=== PATIENT | male | born 1960 | race Two or more races ===

== ENCOUNTER 2024-04-07 02:36 | Inpatient (IN) | payer MEDICAID ==
[~2024-04-07] VITALS: Ht 170.2 cm; Wt 81.5 kg
[2024-04-07 03:05] VITALS: PULSE 62; RESP 14; O2SAT 97
--- NOTE | 2024-04-07 03:06 | ED.PDOC ---
History of Present Illness HPI Comments 63-year-old male came to ER due to abdominal pain. Patient denies any medical problems. States he woke up from his sleep due to sudden onset upper abdominal pain, radiating to his back. Denies any nausea or vomiting. Blood pressure upon arrival was 175/90 mm Hg, and has a heart rate of 60s. Chief Complaint: Abdominal pain Time Seen by MD: 02:40 Reviewed Notes: Nurses Notes Allergies: Coded Allergies: NO KNOWN ALLERGIES (Unverified , 04/07/24) Information Source: Patient Mode of Arrival: Ambulatory Severity: Moderate Timing: Minutes Duration: Since onset Prehospital treatment: None Medication Refill: For: Other Past Medical History PAST MEDICAL HISTORY: Denies Surgical History: Denies all surgeries Family History Family History: Reviewed,noncontributory to illness Social History Smoker: Non-Smoker Alcohol: Denies ETOH Use Drugs: Denies Drug Use Lives In: Home Constitutional: denies: chills, diaphoresis, fatigue, fever, malaise, sweats, weakness, others EENTM: denies: blurred vision, double vision, ear bleeding, ear discharge, ear drainage, ear pain, ear ringing, eye pain, eye redness, hearing loss, mouth pain, mouth swelling, nasal discharge, nose bleeding, nose congestion, nose pain, photophobia, tearing, throat pain, throat swelling, voice changes, others Respiratory: denies: cough, hemoptysis, orthopnea, SOB at rest, shortness of breath, SOB with excertion, stridor, wheezing, others Cardiovascular: denies: chest pain, dizzy spells, diaphoresis, Dyspnea on exertion, edema, irregular heart beat, left arm pain, lightheadedness, palpitations, PND, syncope, others Gastrointestinal: reports: abdominal pain; denies: abdomen distended, blood streaked bowels, constipated, diarrhea, dysphagia, difficulty swallowing, hematemesis, melena, nausea, poor appetite, poor fluid intake, rectal bleeding, rectal pain, vomiting, others Genitourinary: denies: burning, dysuria, flank pain, frequency, hematuria, incontinence, penile discharge, penile sore, pain, testicle pain, testicle swelling, urgency, others Neurological: denies: dizziness, fainting, headache, left sided numbness, left sided weakness, numbness, paresthesia, pre-existing deficit, right sided numbness, right sided weakness, seizure, speech problems, tingling, tremors, weakness, others Musculoskeletal: reports: back pain; denies: gout, joint pain, joint swelling, muscle pain, muscle stiffness, neck pain, others Integumetry: denies: bruises, change in color, change in hair/nails, dryness, laceration, lesions, lumps, rash, wounds, others Allergic/Immunocompromised: denies: Difficulty Healing, Frequent Infections, Hives, Itching, others Hematologic/Lymphatic: denies: anemia, blood clots, easy bleeding, easy bruising, swollen glands, others Endocrine: denies: excessive hunger, excessive sweating, excessive thirst, excessive urination, flushing, intolerance to cold, intolerance to heat, unexpla ined weight gain, unexplained weight loss, others Psychiatric: denies: anxiety, bipolar disorder, depression, hopeless, panic disorder, schizophrenia, sleepless, suicidal, others Physical Exam General Appearance: No Apparent Distress, Normal HEENT: Normal ENT Inspection, Pharynx Normal, TMs Normal Neck: Full Range of Motion, Non-Tender, Normal, Normal Inspection Respiratory: Chest Non-Tender, Lungs Clear, No Accessory Muscle Use, No Respiratory Distress, Normal Breath Sounds Cardiovascular: No Edema, No JVD, No Murmur, No Gallop, Normal Peripheral Pulses, Regular Rate/Rhythm Breast Exam: Deferred Gastrointestinal: No Organomegaly, Non Tender, No Pulsatile Mass, Normal Bowel Sounds, Soft Genitalia: Deferred Pelvic: Deferred Rectal: Deferred Extremities: No calf tenderness, Normal capillary refill, Normal inspection, Normal range of motion, Non-tender, No pedal edema Musculoskeletal : Apperance: Normal Neurologic: Alert, mechanical developer prover II-XII nml as Tested, No Motor Deficits, Normal Affect, Normal Mood, No Sensory Deficits Cerebellar Function: Normal Reflexes: Normal Skin: Dry, Normal Color, Warm Lymphatic: No Adenopathy Was a procedure done? Was a procedure done?: No Differential Dx Considerations may include: Abdominal pain, back pain UTI, Kidney stones, Aortic Aneurysm X-Ray, Labs, Meds, VS Vital Signs Date Time Temp Pulse Resp B/P (MAP) Pulse Ox O2 Delivery O2 Flow Rate FiO2 04/07/24 04:00 87 18 146/89 (108) 97 11/24/24 04:00 87 18 146/89 04/07/24 03:26 62 14 132/82 04/07/24 03:05 62 14 97 Room Air* 0 21 04/07/24 03:05 98.9 62 14 132/82 (99) 97 98.9 04/07/24 03:04 97.6 66 18 168/93 (118) 98 Lab Test 04/07/24 03:15 Range/Units White Blood Count 13.5 H 4.4-10.8 10^3/uL Red Blood Count 5.09 4.5-5.90 10^6/uL Hemoglobin 15.4 13.5-17.5 g/dL Hematocrit 45.8 41.0-53.0 % Mean Corpuscular Volume 90.0 80.0-100.0 fL Mean Corpuscular Hemoglobin 30.4 28.0-32.0 pg Mean Corpuscular Hemoglobin Concent 33.7 32.0-36.0 g/dL Red Cell Distribution Width 14.5 H 11.8-14.3 % Platelet Count 294 140-450 10^3/uL Mean Platelet Volume 9.2 6.9-10.8 fL Neutrophils (%) (Auto) 82.3 H 37.0-80.0 % Lymphocytes (%) (Auto) 12.9 10.0-50.0 % Monocytes (%) (Auto) 4.0 0.0-12.0 % Eosinophils (%) (Auto) 0.6 0.0-7.0 % Basophils (%) (Auto) 0.2 0.0-2.0 % Neutrophils # (Auto) 11.1 H 1.6-8.6 10 ^3/uL Lymphocytes # (Auto) 1.7 0.4-5.4 10 ^3/uL Monocytes # (Auto) 0.5 0-1.3 10 ^3/uL Eosinophils # (Auto) 0.1 0-0.8 10 ^3/uL Basophils # (Auto) 0 0-0.2 10 ^3/uL Nucleated Red Blood Cells 0.1 % Sodium Level 139 136-145 mmol/L Potassium Level 3.4 L 3.5-5.1 mmol/L Chloride Level 106 98-107 mmol/L Carbon Dioxide Level 26 20-31 mmol/L Anion Gap 7 5-15 Blood Urea Nitrogen 12 9-23 mg/dL Creatinine 0.99 0.700-1.30 mg/dL Glomerular Filtration Rate Calc 86 >90 mL/min BUN/Creatinine Ratio 12.1 10.0-20.0 Serum Glucose 131 H 74-106 mg/dL Calcium Level 9.5 8.7-10.4 mg/dL Total Bilirubin 0.4 0.2-1.0 mg/dL Aspartate Amino Transferase (AST) 22 13-40 U/L Alanine Aminotransferase (ALT) 27 7-40 U/L Alkaline Phosphatase 162 H 46-116 U/L Total Protein 8.3 H 5.7-8.2 g/dL Albumin 4.8 3.2-4.8 g/dL Lipase 57 H 12-53 U/L Current Medications Medications (Trade) Dose Ordered Sig/Marie Route Start Time Stop Time Status Last Admin Ondansetron HCl (Zofran) 4 mg ONCE ONCE IV 04/07/24 03:00 04/07/24 03:01 DC 04/07/24 03:26 Sodium Chloride 1,000 ml @ 1,000 mls/hr Q1H ONCE IVB 04/07/24 03:00 04/07/24 03:59 DC 04/07/24 03:19 Morphine Sulfate 4 mg ONCE ONCE IV 04/07/24 03:00 04/07/24 03:01 DC 04/07/24 03:26 Time of 1ST Reevaluation: 03:03 Reevaluation 1ST: Unchanged Time of 2ND Reevaluation: 04:00 Reevaluation 2ND: Improved Patient Education/Counseling: Diagnosis, Treatment Family Education/Counseling: No Family Present Sepsis Sepsis Reasesment Focused Exam Sepsis focused exam: focus exam completed Departure 1 Departure Time of Disposition: 04:55 Impression: Primary Impression: Abdominal pain Disposition: 01 HOME / SELF CARE / HOMELESS Condition: Stable Discharged With: Self Critical Care Note Critical Care Time?: Yes (35 min-critical care time only) Stability Stability form required: No Heart Score Heart Score: Heart Score Response (Comments) Value History N/A 0 EKG N/A 0 Age N/A 0 Risk Factors N/A 0 Troponin N/A 0 Total 0 I personally scribed for KATHERINE VILLELA MD ([email or web address]) on 04/07/24 at 03:06. Electronically submitted by Adelfo Mccauley ([email or web address]). KATHERINE VILLELA MD Apr 07, 2024 03:06
[2024-04-07] MEDS: SODIUM CHLORIDE 0.9% 1,000 ML IVB ONE (03:19)
[2024-04-07 03:21] LABS: Basophils # (auto) 0 10 ^3/uL (0-0.2); Basophils % (auto) 0.2 % (0.0-2.0); Eosinophils # (auto) 0.1 10 ^3/uL (0-0.8); Eosinophils % (auto) 0.6 % (0.0-7.0); Hematocrit 45.8 % (41.0-53.0); Hemoglobin 15.4 g/dL (13.5-17.5); Lymphocytes # (auto) 1.7 10 ^3/uL (0.4-5.4); Lymphocytes % (auto) 12.9 % (10.0-50.0); Mean Corpuscular Hemoglobin 30.4 pg (28.0-32.0); Mean Corpuscular Hgb Conc. 33.7 g/dL (32.0-36.0); Monocytes # (auto) 0.5 10 ^3/uL (0-1.3); Neutrophils # (auto) 11.1 10 ^3/uL (1.6-8.6); Neutrophils % (auto) 82.3 % (37.0-80.0); Nucleated Red Blood Cells % 0.1 %; Platelet Count (auto) 294 10^3/uL (140-450); Red Blood Cells 5.09 10^6/uL (4.5-5.90); Red Cell Distribution Width 14.5 % (11.8-14.3); White Blood Cell 13.5 10^3/uL (4.4-10.8)
[2024-04-07] MEDS: MORPHINE SULFATE 4 MG/ML SYR/VIAL IV ONE ×2 (03:26→05:20)
[2024-04-07] MEDS: ONDANSETRON HCL 4 MG/2 ML VIAL IV ONE ×2 (03:26→05:20)
[2024-04-07 03:39] LABS: Alanine Aminotransferase 27 U/L (7-40); Albumin 4.8 g/dL (3.2-4.8); Alkaline Phosphatase 162 U/L (46-116); Anion Gap 7 (5-15); Aspartate Aminotransferase 22 U/L (13-40); BUN/Creatinine Ratio 12.1 (10.0-20.0); Bilirubin, Total 0.4 mg/dL (0.2-1.0); Blood Urea Nitrogen 12 mg/dL (9-23); Calcium 9.5 mg/dL (8.7-10.4); Carbon Dioxide 26 mmol/L (20-31); Chloride 106 mmol/L (98-107); Glucose 131 mg/dL (74-106); Lipase 57 U/L (12-53); Potassium 3.4 mmol/L (3.5-5.1); Sodium 139 mmol/L (136-145); Total Protein 8.3 g/dL (5.7-8.2)
[2024-04-07] MEDS: IOHEXOL 300 MG/ML 100ML BOTTLE IJ ONE (04:21)
--- NOTE | 2024-04-07 05:17 | DVH ---
Exam: CT CT AB PEL WITH IV CON ONLY History: upper abd pain Comparison Study: None available at time of dictation. Contrast: 100 cc Omnipaque 300 TECHNIQUE: A digital investor relations manager image was obtained. During the uneventful, intravenous administration of c ontrast material, multislice data acquisition was obtained through the abdomen and pelvis. The data s et was subsequently reconstructed into axial images. Images were reviewed on a work station using a c ombination of axial and multiplanar using a variety of window levels and settings. All CT scans at this medical facility are performed using dose modulation techniques as appropriate t o a performed exam including the following: Automated exposure control was utilized; adjustment of th e MA and/or KV according to patient size; and use of iterative reconstruction technique. Radiation Dose Information: CT Dose: Dose-length product is 806.6 mGy*cm FINDINGS: Imaged portions of the lung bases demonstrate bulla in the right middle lobe. There is possible subpl eural banding. There is a small hiatal hernia. The liver, gallbladder, spleen, pancreas and adrenal glands appear un remarkable. The kidneys appear symmetric without hydronephrosis or focal mass. There is a fold at the gallbladder neck with possible hyperdensity which may represent gallstones. Th e common bile duct estimated 0.6 cm. No evidence of bowel obstruction or focal bowel wall thickening. The appendix appears normal. No free fluid, free air, or adenopathy. No suspicious osseous lesion. IMPRESSION: 1. Possible gallstone of the gallbladder neck. 2. Small hiatal hernia 3. Otherwise no acute findings. HS:Y
[2024-04-07 08:25] VITALS: PULSE 92; RESP 18; O2SAT 95
[2024-04-07] MEDS ORDERED: TEMAZEPAM 15 MG CAP PO PRN (09:15)
[2024-04-07] MEDS ORDERED: DOCUSATE SOD 100 MG CAP PO PRN (09:15)
[2024-04-07] MEDS ORDERED: SODIUM CHLORIDE 0.9% 1,000 ML IV SCH (09:15)
[2024-04-07] MEDS ORDERED: MAALOX PLUS or MAALOX 30 ML PO PRN (09:15)
[2024-04-07] MEDS ORDERED: DEXTROSE (50%) 50ML SYRG IV PRN (09:15)
[2024-04-07] MEDS ORDERED: LORazepam 0.5 MG TAB PO PRN (09:15)
[2024-04-07] MEDS ORDERED: hydrALAZINE HCL 20 MG/ML VL IV PRN (09:45)
--- NOTE | 2024-04-07 09:47 | DVH ---
US GALLBLADDER HISTORY: upper abd pain COMPARISON: None TECHNIQUE: Transverse and longitudinal grayscale and color sonographic images were obtained of the ab domen. FINDINGS: Liver: - Size: 12.6 cm - Echogenicity: Normal - Surface Contour: Nodular - Liver Lesion(s): None - Portal Vein: Patent and forward flowing. - Bile Ducts: Normal. The common bile duct is not seen. Gallbladder: Small stone at the neck of gallbladder. The sonographic Garsia sign is negative. Pancreas: Not seen. Kidneys: - Right kidney size: 8.8 cm. There is no hydronephrosis, renal calculi, or mass lesion. Aorta and Inferior Vena Cava: The visualized portions of the abdominal aorta and intrahepatic vena ca va are normal. Other: None IMPRESSION: Cholelithiasis. Nodular hepatic contour could be seen with cirrhosis.
--- NOTE | 2024-04-07 09:49 | DVHHP2 ---
History of Present Illness Reason for Visit: abdominal pain History of Present Illness 63 yo with a history of HTN comes with abd pain and associated weakness patient was evaluated in the ed and recommended for evaluation of acute cholecystitis Cardiovascular: HTN Review of Systems Constitutional: Yes: Weakness; No: Fever, Chills, Sweats, Malaise, Other Eyes: No: Pain, Vision change, Conjunctivae inflammation, Eyelid inflammation, Other, Redness ENT: No: Ear pain, Ear discharge, Nose pain, Nose discharge, Nose congestion, Mouth pain, Mouth swelling, Throat pain, Throat swelling, Other Respiratory: No: Cough, Dry, Shortness of breath, SOB with excertion, Wheezing, Hemoptysis, Pleuritic Pain, Sputum, Wheezing, Other Cardiovascular: No: Chest Pain, Palpitations, Orthopnea, Paroxysmal Noc. Dyspne a, Edema, Lt Headedness, Other Gastrointestinal: Nausea, Abdominal Pain; No: Vomiting, Diarrhea, Constipation, Melena, Hematochezia, Other Genitourinary: No Dysuria, No Frequency, No Incontinence, No Hematuria, No Retention, No Other Musculoskeletal: No: other, neck pain, shoulder pain, arm pain, back pain, hand pain, leg pain, foot pain Skin: No: Rash, Lesions, Jaundice, Bruising, Other Neurological: No: Weakness, Numbness, Incoordination, Change in speech, Confusion, Seizures, Other Allergies: Coded Allergies: NO KNOWN ALLERGIES (Unverified , 04/07/24) Medications Current Medications Medications Dose Ordered Sig/Marie Route Start Time Stop Time Status Last Admin Dose Admin Metronidazole 100 ml @ 100 mls/hr Q8HR IV 04/07/24 09:15 Sodium Chloride 1,000 ml @ 75 mls/hr [id number] IV 04/07/24 09:15 Diagnostic Test (Pha) 1 strip IQ4HR 04/07/24 12:00 Insulin Human Regular IQ4HR SC 04/07/24 12:00 Dextrose 50 ml UD PRN IV 04/07/24 09:15 Sodium Chloride 1,000 ml @ 60 mls/hr [id number] IV 04/07/24 09:15 Lorazepam 0.5 mg Q6HP PRN PO 04/07/24 09:15 Al Hydrox/Mg Hydrox/Simethicone 30 ml Q6HP PRN PO 04/07/24 09:15 Docusate Sodium 100 mg BIDPRN PRN PO 04/07/24 09:15 Acetaminophen 650 mg Q6HP PRN PO 04/07/24 09:15 Temazepam 15 mg QHSP PRN PO 04/07/24 09:15 Acetaminophen/ Hydrocodone Bitart 1 tab Q4HP PRN PO 04/07/24 09:15 Ondansetron HCl 4 mg Q4HP PRN IV 04/07/24 09:15 Morphine Sulfate 2 mg Q4HPRN PRN IV 04/07/24 09:15 Exam Vital Signs Vital Signs Date Time Temp Pulse Resp B/P (MAP) Pulse Ox O2 Delivery O2 Flow Rate FiO2 04/07/24 07:20 92 18 143/89 (107) 95 04/07/24 03:05 Room Air* 0 21 04/07/24 03:05 98.9 98.9 General Appearance: Alert, Oriented X3 HEENT: Atraumatic, PERRLA Respiratory: Clear to auscultation, Normal air movement Cardiovascular: Regular rate, Normal S1, Normal S2 Abdominal: Normal bowel sounds, Soft, No tenderness Extremities: No clubbing, No cyanosis, No edema Skin: No rashes, No breakdown Neuro: Normal speech, Strength at 5/5 X4 ext Psych/Mental Status: Mental status NL, Mood NL Labs/Xrays Labs Test 04/07/24 03:15 Range/Units White Blood Count 13.5 H 4.4-10.8 10^3/uL Red Blood Count 5.09 4.5-5.90 10^6/uL Hemoglobin 15.4 13.5-17.5 g/dL Hematocrit 45.8 41.0-53.0 % Mean Corpuscular Volume 90.0 80.0-100.0 fL Mean Corpuscular Hemoglobin 30.4 28.0-32.0 pg Mean Corpuscular Hemoglobin Concent 33.7 32.0-36.0 g/dL Red Cell Distribution Width 14.5 H 11.8-14.3 % Platelet Count 294 140-450 10^3/uL Mean Platelet Volume 9.2 6.9-10.8 fL Neutrophils (%) (Auto) 82.3 H 37.0-80.0 % Lymphocytes (%) (Auto) 12.9 10.0-50.0 % Monocytes (%) (Auto) 4.0 0.0-12.0 % Eosinophils (%) (Auto) 0.6 0.0-7.0 % Basophils (%) (Auto) 0.2 0.0-2.0 % Neutrophils # (Auto) 11.1 H 1.6-8.6 10 ^3/uL Lymphocytes # (Auto) 1.7 0.4-5.4 10 ^3/uL Monocytes # (Auto) 0.5 0-1.3 10 ^3/uL Eosinophils # (Auto) 0.1 0-0.8 10 ^3/uL Basophils # (Auto) 0 0-0.2 10 ^3/uL Nucleated Red Blood Cells 0.1 % Sodium Level 139 136-145 mmol/L Potassium Level 3.4 L 3.5-5.1 mmol/L Chloride Level 106 98-107 mmol/L Carbon Dioxide Level 26 20-31 mmol/L Anion Gap 7 5-15 Blood Urea Nitrogen 12 9-23 mg/dL Creatinine 0.99 0.700-1.30 mg/dL Glomerular Filtration Rate Calc 86 >90 mL/min BUN/Creatinine Ratio 12.1 10.0-20.0 Serum Glucose 131 H 74-106 mg/dL Calcium Level 9.5 8.7-10.4 mg/dL Total Bilirubin 0.4 0.2-1.0 mg/dL Aspartate Amino Transferase (AST) 22 13-40 U/L Alanine Aminotransferase (ALT) 27 7-40 U/L Alkaline Phosphatase 162 H 46-116 U/L Total Protein 8.3 H 5.7-8.2 g/dL Albumin 4.8 3.2-4.8 g/dL Lipase 57 H 12-53 U/L Assessment/Plan Assessment/Plan Admit Med/Surg Suspected Acute Cholecystitis Elevated white count abdominal pain IV hydration IV abx Flagyl surgery evaluation CT scan stones Gall bladder us pending HTN history c/w home meds vs prn meds Plan discussed with: Patient My Orders Orders - STEPHANIE LAUREN MD Procedure Category Date Status Time Metronidazole PHA 04/07/24 In Process 500mg/100ml (Flagyl 09:15 Sodium Chloride 0.9% PHA 04/07/24 In Process 09:15 Glucose Blood PHA 04/07/24 In Process (Accu-Chek Comfort 12:00 Insulin R (Human) PHA 04/07/24 In Process (Insulin R) 12:00 Dextrose 50% Syringe PHA 04/07/24 In Process 09:15 Admit ADMIT 04/07/24 Transmitted 09:09 Code Status CODE 04/07/24 Transmitted 09:09 Vital Signs [facility] 04/07/24 In Process 09:09 Review Orders With [facility] 04/07/24 In Process Adm. 09:09 Regular Diet DIET 04/07/24 Transmitted Breakfast Sodium Chloride 0.9% PHA 04/07/24 In Process 09:15 Lorazepam Tablet PHA 04/07/24 In Process (Ativan Tablet) 09:15 Alum & Mag PHA 04/07/24 In Process Hydrox-Simethicone 09:15 Docusate Sodium PHA 04/07/24 In Process Capsule (Colace 09:15 Acetaminophen Tablet PHA 04/07/24 In Process (Tylenol Tablet) 09:15 Temazepam (Restoril) PHA 04/07/24 In Process 09:15 Notify Of Changes [facility] 04/07/24 In Process From Base 09:09 Advance Directive [facility] 04/07/24 In Process 09:09 Basic Metabolic Panel LAB 04/08/24 Verified 04:00 Complete Blood Count LAB 04/08/24 Verified 04:00 Patient Condition ORDERS 04/07/24 Transmitted 09:09 Allergies BORIS 04/07/24 In Process 09:09 Hydrocodone-Acet PHA 04/07/24 In Process 5/325mg Tab ([place] 09:15 Ondansetron Hcl PHA 04/07/24 In Process (Zofran) 09:15 Morphine Sulfate PHA 04/07/24 In Process Injection 09:15 Notify Md Of Changes [facility] 04/07/24 In Process From Base 09:09 Oxygen By Nasal RT 04/07/24 Transmitted Cannula 09:09 Hydralazine Injection PHA 04/07/24 Logged (Apresoline Inject 09:45 Problem List: (1) Acute cholecystitis due to biliary calculus (2) HTN (hypertension) (3) Abdominal pain Date of Service: Apr 07, 2024 Billing Provider: STEPHANIE LAUREN MD Common Visit Codes: [id number] INP/OBS CARE (HIGH) STEPHANIE LAUREN MD Apr 07, 2024 09:49
[2024-04-07] MEDS: metroNIDAZOLE 500MG/100ML 100 ML IV SCH (11:00)
[2024-04-07] MEDS: MORPHINE SULFATE INJ 2 MG/ml SYRG IV PRN (11:24)
[2024-04-07] MEDS: SODIUM CHLORIDE 0.9% 1,000 ML IV SCH (11:30)
[2024-04-07] MEDS: ACCU-CHEK COMFORT CURVE STRIP VI SCH (12:30)
[2024-04-07] MEDS: InsuLIN REG 1unit/0.01ml Soln (100units/ml) SC SCH (13:00)
[2024-04-07 19:21] LABS: Urine Bacteria None Seen /hpf (None Seen)
[2024-04-07 20:14] LABS: Urine Blood Negative /uL (Negative); Urine Clarity Clear (Clear); Urine Color Light-Yellow (Yellow); Urine Mucus FEW (None Seen); Urine Protein, UAD Negative (Negative); Urine Specific Gravity 1.021 (1.001-1.035); Urine Urobilinogen Normal (Negative); Urine WBC 1 /hpf (0 - 3); Urine pH 7.5 (5.0-9.0)
[2024-04-08 04:44] LABS: Basophils # (auto) 0 10 ^3/uL (0-0.2); Basophils % (auto) 0.1 % (0.0-2.0); Eosinophils # (auto) 0 10 ^3/uL (0-0.8); Hematocrit 39.9 % (41.0-53.0); Hemoglobin 13.6 g/dL (13.5-17.5); Lymphocytes # (auto) 1.6 10 ^3/uL (0.4-5.4); Lymphocytes % (auto) 10.6 % (10.0-50.0); Mean Corpuscular Hemoglobin 30.6 pg (28.0-32.0); Monocytes # (auto) 1.5 10 ^3/uL (0-1.3); Monocytes % (auto) 10.2 % (0.0-12.0); Neutrophils # (auto) 11.8 10 ^3/uL (1.6-8.6); Neutrophils % (auto) 79.1 % (37.0-80.0); Platelet Count (auto) 234 10^3/uL (140-450); Red Blood Cells 4.43 10^6/uL (4.5-5.90); Red Cell Distribution Width 14.1 % (11.8-14.3); White Blood Cell 14.9 10^3/uL (4.4-10.8)
[2024-04-08 04:50] LABS: Calcium 9.1 mg/dL (8.7-10.4); Chloride 108 mmol/L (98-107); Potassium 3.7 mmol/L (3.5-5.1); Sodium 138 mmol/L (136-145)
[2024-04-08 04:51] LABS: Anion Gap 8 (5-15); Carbon Dioxide 22 mmol/L (20-31)
[2024-04-08 04:56] LABS: BUN/Creatinine Ratio 8.9 (10.0-20.0); Blood Urea Nitrogen 8 mg/dL (9-23); Glucose 126 mg/dL (74-106)
--- NOTE | 2024-04-08 11:49 | DVHPN2 ---
Subjective The patient is seen and examined at bedside. Still have severe right upper quadrant abdominal pain. Reviewed: Care Plan, H&P, Labs, Medications, Previous Orders, Radiology Changes from previous H/P or p: No Changes Eyes: No Pain, No Vision change, No Conjunctivae inflammation, No Eyelid inflammation, No Other, No Redness ENT: No Ear pain, No Ear discharge, No Nose pain, No Nose discharge, No Nose congestion, No Mouth pain, No Mouth swelling, No Throat pain, No Throat swelling, No Other Cardiovascular: No Chest Pain, No Palpitations, No Orthopnea, No Paroxysmal Noc. Dyspnea, No Edema, No Lt Headedness, No Other Respiratory: No Cough, No Dry, No Shortness of breath, No SOB with excertion, No Wheezing, No Hemoptysis, No Pleuritic Pain, No Sputum, No Other Gastrointestinal: Nausea; No Vomiting; Abdominal Pain; No Diarrhea, No Constipation, No Melena, No Hematochezia, No Other Genitourinary: No Dysuria, No Frequency, No Incontinence, No Hematuria, No Retention, No Other Musculoskeletal: No other, No neck pain, No shoulder pain, No arm pain, No back pain, No hand pain, No leg pain, No foot pain Skin: No Rash, No Lesions, No Jaundice, No Bruising, No Other Objective Vitals Vital Signs Date Time Temp Pulse Resp B/P (MAP) Pulse Ox O2 Delivery O2 Flow Rate FiO2 04/08/24 09:13 95 16 127/79 (95) 95 04/08/24 08:05 Room Air* 0 21 04/08/24 06:38 100.4 100.4 Intake/Output Intake and Output 04/08/24 07:00 Intake Total 575 ml Balance 575 ml Intake IV Total 575 ml General Appearance: Alert, Oriented X3, Cooperative, mild distress HEENT: Atraumatic, PERRLA, EOMI, Mucous membr. moist/pink Neck: Supple Lungs: Clear to auscultation, Normal air movement Cardiovascular: Regular rate, Normal S1, Normal S2, No murmurs, Gallops, Rubs Abdomen: Normal bowel sounds, Soft, No tenderness, No hepatospenomegaly Neuro: Cranial nerves 3-12 NL Psych/Mental Status: Mental status NL Medications Current Medications Medications Dose Ordered Sig/Marie Route Start Time Stop Time Status Last Admin Dose Admin Metronidazole 100 ml @ 100 mls/hr Q8HR IV 04/07/24 09:15 04/08/24 05:28 100 MLS/HR Sodium Chloride 1,000 ml @ 75 mls/hr [id number] IV 04/07/24 09:15 04/08/24 00:50 75 MLS/HR Diagnostic Test (Pha) 1 strip IQ4HR 04/07/24 12:00 04/08/24 08:25 1 STRIP Insulin Human Regular IQ4HR SC 04/07/24 12:00 04/08/24 04:00 2 UNITS Dextrose 50 ml UD PRN IV 04/07/24 09:15 Sodium Chloride 1,000 ml @ 60 mls/hr [id number] IV 04/07/24 09:15 Cancel Lorazepam 0.5 mg Q6HP PRN PO 04/07/24 09:15 Al Hydrox/Mg Hydrox/Simethicone 30 ml Q6HP PRN PO 04/07/24 09:15 Docusate Sodium 100 mg BIDPRN PRN PO 04/07/24 09:15 Acetaminophen 650 mg Q6HP PRN PO 04/07/24 09:15 Temazepam 15 mg QHSP PRN PO 04/07/24 09:15 Acetaminophen/ Hydrocodone Bitart 1 tab Q4HP PRN PO 04/07/24 09:15 Ondansetron HCl 4 mg Q4HP PRN IV 04/07/24 09:15 Morphine Sulfate 2 mg Q4HPRN PRN IV 04/07/24 09:15 04/07/24 11:24 2 MG Hydralazine HCl 10 mg Q6HR PRN IV 04/07/24 09:45 Laboratory Results Laboratory Tests 04/08/24 03:34 Chemistry Test 04/08/24 03:34 Calcium Level 9.1 mg/dL (8.7-10.4) Urinalysis Test 04/07/24 19:19 Urine Color Light-yellow (Yellow) Urine Clarity Clear (Clear) Urine pH 7.5 (5.0-9.0) Urine Specific [place] 1.021 (1.001-1.035) Urine Protein Negative (Negative) Urine Ketones Negative (Negative) Urine Blood Negative /uL (Negative) Urine Nitrite Negative (Negative) Urine Bilirubin Negative (Negative) Urine Urobilinogen Normal mg/dL (Negative) Urine Leukocyte Esterase Negative /uL (Negative) Urine RBC <1 /hpf (0 - 3) Urine WBC 1 /hpf (0 - 3) Urine Squamous Epithelial Cells None seen /hpf (<5) Urine Bacteria None seen /hpf (None Seen) Urine Mucus Few (None Seen) Urine Glucose Trace mg/dL (Normal) Labs and/or images reviewed: Labs reviewed by me Assessment/Plan Assessment/Plan Cholelithiasis Biliary colic Leukocytosis Severe abdominal pain Nausea and vomiting Hypertension Continuing current management. Continuing with IV fluid. Continuing with IV pain medication since the patient had severe biliary colic and also positive Garsai sign on examination I am going to order HIDA scan. I will consult surgeon. Continuing Zofran p.r.n. for nausea or vomiting. Continuing IV antibiotic with Flagyl. Continuing hypertensive medication. Plan discussed with: Patient Date of Service: Apr 08, 2024 Billing Provider: FANNIE FREY MD Common Visit Codes: [id number] INP/OBS CARE(HIGH) FANNIE FREY MD Apr 08, 2024 11:48
[2024-04-08 16:19] VITALS: PULSE 68; RESP 18; O2SAT 95
[2024-04-08] MEDS: HYDROcodone-ACET 5/325MG TAB PO PRN (17:19)
[2024-04-08 20:00] VITALS: PULSE 97; RESP 20; O2SAT 95
[2024-04-08 21:00] VITALS: BP 114/68; PULSE 97; RESP 20; TEMP 98.7; O2SAT 95
[2024-04-09] VITALS (7 sets, daily range): BP systolic 115–131; BP diastolic 67–82; PULSE 95–110; RESP 16–20; TEMP 97.8–101.9; O2SAT 93–98
--- NOTE | 2024-04-09 11:10 | ECG ---
[facility] Test Date: 2024-04-07 Test Time: 02:53:27 Pat Name: AUBREY WHATLEY Department: ER Room: 0216 B Gender: M Political Director: ER : 1960 Requested By: KATHERINE VILLELA Order Number: [id number] Reading MD: Michael Garcia Measurements Intervals [place] Rate: 63 P: 42 MA: 209 QRS: 96 QRSD: 108 T: 42 QT: 392 QTc: 402 Interpretive Statements Sinus rhythm Right axis deviation Baseline wander in lead(s) V1,V2 Electronically Signed On 04-10-2024 14:13:12 PST by Michael Garcia Please click the below link to view image of tracing.
--- NOTE | 2024-04-09 11:21 | DVHPN2 ---
Subjective The patient is seen and examined at bedside. The patient still have abdominal pain 12/22 today. Reviewed: Care Plan, H&P, Labs, Medications, Previous Orders, Radiology Changes from previous H/P or p: No Changes Eyes: No Pain, No Vision change, No Conjunctivae inflammation, No Eyelid inflammation, No Other, No Redness ENT: No Ear pain, No Ear discharge, No Nose pain, No Nose discharge, No Nose congestion, No Mouth pain, No Mouth swelling, No Throat pain, No Throat swelling, No Other Cardiovascular: No Chest Pain, No Palpitations, No Orthopnea, No Paroxysmal Noc. Dyspnea, No Edema, No Lt Headedness, No Other Respiratory: No Cough, No Dry, No Shortness of breath, No SOB with excertion, No Wheezing, No Hemoptysis, No Pleuritic Pain, No Sputum, No Other Gastrointestinal: Nausea; No Vomiting; Abdominal Pain; No Diarrhea, No Constipation, No Melena, No Hematochezia, No Other Genitourinary: No Dysuria, No Frequency, No Incontinence, No Hematuria, No Retention, No Other Musculoskeletal: No other, No neck pain, No shoulder pain, No arm pain, No back pain, No hand pain, No leg pain, No foot pain Skin: No Rash, No Lesions, No Jaundice, No Bruising, No Other Objective Vitals Vital Signs Date Time Temp Pulse Resp B/P (MAP) Pulse Ox O2 Delivery O2 Flow Rate FiO2 04/09/24 09:00 100.3 105 16 130/73 (92) 98 100.3 04/08/24 20:00 Room Air* 0 21 Intake/Output Intake and Output 04/09/24 07:00 Intake Total 2297 ml Output Total 600 ml Balance 1697 ml Intake Oral 672 ml IV Total 1625 ml Output Urine Total 600 ml # Voids 1 General Appearance: Alert, No acute distress HEENT: Atraumatic, PERRLA, EOMI, Mucous membr. moist/pink Neck: Supple Lungs: Clear to auscultation, Normal air movement Cardiovascular: Regular rate, Normal S1, Normal S2, No murmurs, Gallops, Rubs Abdomen: Normal bowel sounds, Soft, No tenderness Neuro: Cranial nerves 3-12 NL Psych/Mental Status: Mental status NL Medications Current Medications Medications Dose Ordered Sig/Marie Route Start Time Stop Time Status Last Admin Dose Admin Metronidazole 100 ml @ 100 mls/hr Q8HR IV 04/07/24 09:15 04/09/24 05:19 100 MLS/HR Sodium Chloride 1,000 ml @ 75 mls/hr [id number] IV 04/07/24 09:15 04/09/24 01:35 75 MLS/HR Diagnostic Test (Pha) 1 strip IQ4HR 04/07/24 12:00 04/09/24 08:25 1 STRIP Insulin Human Regular IQ4HR SC 04/07/24 12:00 04/08/24 23:21 2 UNITS Dextrose 50 ml UD PRN IV 04/07/24 09:15 Sodium Chloride 1,000 ml @ 60 mls/hr [id number] IV 04/07/24 09:15 Cancel Lorazepam 0.5 mg Q6HP PRN PO 04/07/24 09:15 Al Hydrox/Mg Hydrox/Simethicone 30 ml Q6HP PRN PO 04/07/24 09:15 Docusate Sodium 100 mg BIDPRN PRN PO 04/07/24 09:15 Acetaminophen 650 mg Q6HP PRN PO 04/07/24 09:15 Temazepam 15 mg QHSP PRN PO 04/07/24 09:15 Acetaminophen/ Hydrocodone Bitart 1 tab Q4HP PRN PO 04/07/24 09:15 04/08/24 23:43 1 TAB Ondansetron HCl 4 mg Q4HP PRN IV 04/07/24 09:15 Morphine Sulfate 2 mg Q4HPRN PRN IV 04/07/24 09:15 04/09/24 08:18 2 MG Hydralazine HCl 10 mg Q6HR PRN IV 04/07/24 09:45 Laboratory Results Laboratory Tests 04/08/24 03:34 Urinalysis Test 04/07/24 19:19 Urine Color Light-yellow (Yellow) Urine Clarity Clear (Clear) Urine pH 7.5 (5.0-9.0) Urine Specific [place] 1.021 (1.001-1.035) Urine Protein Negative (Negative) Urine Ketones Negative (Negative) Urine Blood Negative /uL (Negative) Urine Nitrite Negative (Negative) Urine Bilirubin Negative (Negative) Urine Urobilinogen Normal mg/dL (Negative) Urine Leukocyte Esterase Negative /uL (Negative) Urine RBC <1 /hpf (0 - 3) Urine WBC 1 /hpf (0 - 3) Urine Squamous Epithelial Cells None seen /hpf (<5) Urine Bacteria None seen /hpf (None Seen) Urine Mucus Few (None Seen) Urine Glucose Trace mg/dL (Normal) Labs and/or images reviewed: Labs reviewed by me Assessment/Plan Assessment/Plan Cholelithiasis Biliary colic Leukocytosis Severe abdominal pain Nausea and vomiting Hypertension Continuing current management. Continuing with IV fluid. Continuing with IV pain medication since the patient had severe biliary colic and also positive Garsia sign on examination. Waiting for HIDA scan. Waiting for surgeon to see the patient. Continuing Zofran p.r.n. for nausea or vomiting. Continuing IV antibiotic with Flagyl. Continuing hypertensive medication. Plan discussed with: Patient My Orders Orders - FANNIE FREY MD Procedure Category Date Status Time Nm Hida Scan NM 04/09/24 Verified 11:18 * Surgical Consult CONS 04/09/24 Verified Date of Service: Apr 09, 2024 Billing Provider: FANNIE FREY MD Common Visit Codes: [id number] INP/OBS CARE(HIGH) FANNIE FREY MD Apr 09, 2024 11:21
[2024-04-09] MEDS: POTASSIUM CHLORIDE 20 MEQ in D5W/LACTATED RINGERS 1,000 ML IV SCH (15:37)
[2024-04-09] MEDS: ACETAMINOPHEN 325 MG TAB PO PRN (16:20)
[2024-04-10] VITALS (10 sets, daily range): BP systolic 111–133; BP diastolic 70–78; PULSE 92–135; RESP 16–25; TEMP 98.2–101.6; O2SAT 91–94
[2024-04-10] MEDS: ONDANSETRON HCL 4 MG/2 ML VIAL IV PRN (03:56)
--- NOTE | 2024-04-10 10:54 | DVHINCON2 ---
Date of service: Apr 10, 2024 Allergies: Coded Allergies: NO KNOWN ALLERGIES (Unverified , 04/07/24) Current Medications Current Medications Medications (Trade) Dose Ordered Sig/Marie Route PRN Reason Start Time Stop Time Status Last Admin Potassium Chloride 20 meq/ Dextrose/Lactated Ringer's 1,010 ml @ 100 mls/hr Q10H6M IV 04/09/24 12:00 04/09/24 23:44 Ceftriaxone Sodium 50 ml @ 100 mls/hr DAILY@09 IV 04/10/24 10:15 Vital Signs Vital Signs Date Time Temp Pulse Resp B/P (MAP) Pulse Ox O2 Delivery O2 Flow Rate FiO2 04/10/24 08:38 99.9 92 20 131/78 (95) 93 99.9 04/09/24 20:00 Room Air* 0 21 Labs/Diagnostic Data Labs Test 04/09/24 23:24 04/08/24 03:34 04/07/24 19:19 04/07/24 03:15 Range/Units POC Glucose 165 H 70-106 mg/dl White Blood Count 14.9 H 4.4-10.8 10^3/uL Red Blood Count 4.43 L 4.5-5.90 10^6/uL Hemoglobin 13.6 13.5-17.5 g/dL Hematocrit 39.9 #L 41.0-53.0 % Mean Corpuscular Volume 90.0 80.0-100.0 fL Mean Corpuscular Hemoglobin 30.6 28.0-32.0 pg Mean Corpuscular Hemoglobin Concent 34.0 32.0-36.0 g/dL Red Cell Distribution Width 14.1 11.8-14.3 % Platelet Count 234 140-450 10^3/uL Mean Platelet Volume 9.3 6.9-10.8 fL Neutrophils (%) (Auto) 79.1 37.0-80.0 % Lymphocytes (%) (Auto) 10.6 10.0-50.0 % Monocytes (%) (Auto) 10.2 0.0-12.0 % Eosinophils (%) (Auto) 0.0 0.0-7.0 % Basophils (%) (Auto) 0.1 0.0-2.0 % Neutrophils # (Auto) 11.8 H 1.6-8.6 10 ^3/uL Lymphocytes # (Auto) 1.6 0.4-5.4 10 ^3/uL Monocytes # (Auto) 1.5 H 0-1.3 10 ^3/uL Eosinophils # (Auto) 0 0-0.8 10 ^3/uL Basophils # (Auto) 0 0-0.2 10 ^3/uL Nucleated Red Blood Cells 0.0 % Sodium Level 138 136-145 mmol/L Potassium Level 3.7 3.5-5.1 mmol/L Chloride Level 108 H 98-107 mmol/L Carbon Dioxide Level 22 20-31 mmol/L Anion Gap 8 5-15 Blood Urea Nitrogen 8 L 9-23 mg/dL Creatinine 0.90 0.700-1.30 mg/dL Glomerular Filtration Rate Calc 96 >90 mL/min BUN/Creatinine Ratio 8.9 L 10.0-20.0 Serum Glucose 126 H 74-106 mg/dL Calcium Level 9.1 8.7-10.4 mg/dL Urine Color Light-yellow Yellow Urine Clarity Clear Clear Urine pH 7.5 5.0-9.0 Urine Specific [place] 1.021 1.001-1.035 Urine Protein Negative Negative Urine Ketones Negative Negative Urine Blood Negative Negative /uL Urine Nitrite Negative Negative Urine Bilirubin Negative Negative Urine Urobilinogen Normal Negative mg/dL Urine Leukocyte Esterase Negative Negative /uL Urine RBC <1 0 - 3 /hpf Urine WBC 1 0 - 3 /hpf Urine Squamous Epithelial Cells None seen <5 /hpf Urine Bacteria None seen None Seen /hpf Urine Mucus Few None Seen Urine Glucose Trace Normal mg/dL Total Bilirubin 0.4 0.2-1.0 mg/dL Aspartate Amino Transferase (AST) 22 13-40 U/L Alanine Aminotransferase (ALT) 27 7-40 U/L Alkaline Phosphatase 162 H 46-116 U/L Total Protein 8.3 H 5.7-8.2 g/dL Albumin 4.8 3.2-4.8 g/dL Lipase 57 H 12-53 U/L Assessment 63 year old male with abdominal pain, possibly cholecystitis, no labs done, hida scan pending, will follow Plan discussed with: Patient WANDA RILEY MD Apr 10, 2024 10:54
[2024-04-10 11:08] LABS: Basophils # (auto) 0 10 ^3/uL (0-0.2); Basophils % (auto) 0.3 % (0.0-2.0); Eosinophils # (auto) 0 10 ^3/uL (0-0.8); Hematocrit 42.2 % (41.0-53.0); Hemoglobin 14.1 g/dL (13.5-17.5); Lymphocytes # (auto) 0.6 10 ^3/uL (0.4-5.4); Mean Corpuscular Hemoglobin 30.1 pg (28.0-32.0); Mean Corpuscular Hgb Conc. 33.4 g/dL (32.0-36.0); Mean Corpuscular Volume 90.1 fL (80.0-100.0); Monocytes % (auto) 6.3 % (0.0-12.0); Neutrophils # (auto) 13.5 10 ^3/uL (1.6-8.6); Neutrophils % (auto) 89.4 % (37.0-80.0); Platelet Count (auto) 214 10^3/uL (140-450); Red Blood Cells 4.68 10^6/uL (4.5-5.90); Red Cell Distribution Width 13.7 % (11.8-14.3); White Blood Cell 15.1 10^3/uL (4.4-10.8)
[2024-04-10] MEDS: cefTRIAXone 1GM/50ML D5W 50 ML IV SCH (11:17)
[2024-04-10 11:22] LABS: Alanine Aminotransferase 20 U/L (7-40); Albumin 3.8 g/dL (3.2-4.8); Anion Gap 9 (5-15); Aspartate Aminotransferase 18 U/L (13-40); BUN/Creatinine Ratio 17.1 (10.0-20.0); Blood Urea Nitrogen 14 mg/dL (9-23); Calcium 9.4 mg/dL (8.7-10.4); Carbon Dioxide 21 mmol/L (20-31); Chloride 105 mmol/L (98-107)
[2024-04-10 11:23] LABS: Alkaline Phosphatase 165 U/L (46-116); Bilirubin, Total 1.1 mg/dL (0.2-1.0); Glucose 152 mg/dL (74-106); INR 1.19 (0.9-1.15); Partial Thromboplastin Time 29.6 SEC (24.5-34.5); Prothrombin Time 12.5 sec (9.3-11.8); Sodium 135 mmol/L (136-145); Total Protein 7.2 g/dL (5.7-8.2)
--- NOTE | 2024-04-10 13:05 | DVHPN2 ---
Subjective Patient reporting abdominal pain, 11/21. Localizer right upper quadrant Reviewed: Care Plan, H&P, Labs, Medications, Previous Orders, Radiology Changes from previous H/P or p: No Changes Eyes: No Pain, No Vision change, No Conjunctivae inflammation, No Eyelid inflammation, No Other, No Redness ENT: No Ear pain, No Ear discharge, No Nose pain, No Nose discharge, No Nose congestion, No Mouth pain, No Mouth swelling, No Throat pain, No Throat swelling, No Other Cardiovascular: No Chest Pain, No Palpitations, No Orthopnea, No Paroxysmal Noc. Dyspnea, No Edema, No Lt Headedness, No Other Respiratory: No Cough, No Dry, No Shortness of breath, No SOB with excertion, No Wheezing, No Hemoptysis, No Pleuritic Pain, No Sputum, No Other Gastrointestinal: Nausea; No Vomiting; Abdominal Pain; No Diarrhea, No Constipation, No Melena, No Hematochezia, No Other Genitourinary: No Dysuria, No Frequency, No Incontinence, No Hematuria, No Retention, No Other Musculoskeletal: No other, No neck pain, No shoulder pain, No arm pain, No back pain, No hand pain, No leg pain, No foot pain Skin: No Rash, No Lesions, No Jaundice, No Bruising, No Other Objective Vitals Vital Signs Date Time Temp Pulse Resp B/P (MAP) Pulse Ox O2 Delivery O2 Flow Rate FiO2 04/10/24 11:01 99.9 04/10/24 08:38 92 20 131/78 (95) 93 04/09/24 20:00 Room Air* 0 21 Intake/Output Intake and Output 04/10/24 07:00 Intake Total 1340 ml Balance 1340 ml Intake Oral 240 ml IV Total 1100 ml # Voids 4 General Appearance: Alert, Oriented X3, Cooperative, mild distress HEENT: Atraumatic, PERRLA, EOMI, Mucous membr. moist/pink Neck: Supple Lungs: Clear to auscultation, Normal air movement Cardiovascular: Regular rate, Normal S1, Normal S2, No murmurs, Gallops, Rubs Abdomen: Normal bowel sounds, Other (Positive Garsia's sign) Neuro: Normal speech, Cranial nerves 3-12 NL Psych/Mental Status: Mental status NL, Mood NL Medications Current Medications Medications Dose Ordered Sig/Marie Route Start Time Stop Time Status Last Admin Dose Admin Metronidazole 100 ml @ 100 mls/hr Q8HR IV 04/07/24 09:15 04/10/24 05:24 100 MLS/HR Diagnostic Test (Pha) 1 strip IQ4HR 04/07/24 12:00 04/10/24 11:18 1 STRIP Insulin Human Regular IQ4HR SC 04/07/24 12:00 04/10/24 11:23 3 UNITS Dextrose 50 ml UD PRN IV 04/07/24 09:15 Sodium Chloride 1,000 ml @ 60 mls/hr [id number] IV 04/07/24 09:15 Cancel Lorazepam 0.5 mg Q6HP PRN PO 04/07/24 09:15 Al Hydrox/Mg Hydrox/Simethicone 30 ml Q6HP PRN PO 04/07/24 09:15 Docusate Sodium 100 mg BIDPRN PRN PO 04/07/24 09:15 Acetaminophen 650 mg Q6HP PRN PO 04/07/24 09:15 04/10/24 11:01 650 MG Temazepam 15 mg QHSP PRN PO 04/07/24 09:15 Acetaminophen/ Hydrocodone Bitart 1 tab Q4HP PRN PO 04/07/24 09:15 04/09/24 23:40 1 TAB Ondansetron HCl 4 mg Q4HP PRN IV 04/07/24 09:15 04/10/24 03:56 4 MG Morphine Sulfate 2 mg Q4HPRN PRN IV 04/07/24 09:15 04/09/24 13:34 2 MG Hydralazine HCl 10 mg Q6HR PRN IV 04/07/24 09:45 Potassium Chloride 20 meq/ Dextrose/Lactated Ringer's 1,010 ml @ 100 mls/hr Q10H6M IV 04/09/24 12:00 04/10/24 11:18 100 MLS/HR Ceftriaxone Sodium 50 ml @ 100 mls/hr DAILY@09 IV 04/10/24 10:15 04/10/24 11:17 100 MLS/HR Laboratory Results Laboratory Tests 04/10/24 10:55 Chemistry Test 04/10/24 10:55 Albumin 3.8 g/dL (3.2-4.8) Calcium Level 9.4 mg/dL (8.7-10.4) Total Protein 7.2 g/dL (5.7-8.2) Coagulation Test 04/10/24 10:55 Prothrombin Time 12.5 sec (9.3-11.8) H Prothrombin Time INR 1.19 (0.9-1.15) H Activated Partial Thromboplast Time 29.6 SEC (24.5-34.5) LFT Test 04/10/24 10:55 Alanine Aminotransferase (ALT) 20 U/L (7-40) Alkaline Phosphatase 165 U/L (46-116) H Aspartate Amino Transferase (AST) 18 U/L (13-40) Total Bilirubin 1.1 mg/dL (0.2-1.0) H Urinalysis Test 04/07/24 19:19 Urine Color Light-yellow (Yellow) Urine Clarity Clear (Clear) Urine pH 7.5 (5.0-9.0) Urine Specific [place] 1.021 (1.001-1.035) Urine Protein Negative (Negative) Urine Ketones Negative (Negative) Urine Blood Negative /uL (Negative) Urine Nitrite Negative (Negative) Urine Bilirubin Negative (Negative) Urine Urobilinogen Normal mg/dL (Negative) Urine Leukocyte Esterase Negative /uL (Negative) Urine RBC <1 /hpf (0 - 3) Urine WBC 1 /hpf (0 - 3) Urine Squamous Epithelial Cells None seen /hpf (<5) Urine Bacteria None seen /hpf (None Seen) Urine Mucus Few (None Seen) Urine Glucose Trace mg/dL (Normal) Labs and/or images reviewed: Labs reviewed by me, Image(s) reviewed by me Assessment/Plan Assessment/Plan Impression: -sepsis -cholelithiasis, probable cholecystitis -primary hypertension Plan: -surgical consultation -pending HIDA scan -pain management -antibiotic therapy: Flagyl, add Rocephin -NPO status -IV fluids -repeat labs today Total time spent with patient discussing and formulating plan of care: 35 minutes. This medical document was created using an electronic medical record system with [employer] dictation system. Although this document has been carefully reviewed, there may still be some phonetic and typographical errors. These areas are purely typographical due to imperfections of the software programs, and do not reflect any compromise in the patient's medical care. Plan discussed with: Patient, Other (RN) My Orders Orders - DIMITRI CHEEMA CRANE CHASER Procedure Category Date Status Time Ceftriaxone 1gm/50ml PHA 04/10/24 In Process D5w (Rocephin) 10:15 Date of Service: Apr 10, 2024 Billing Provider: DIMITRI CHEEMA NP Common Visit Codes: [id number] INP/OBS CARE(HIGH) DIMITRI CHEEMA NP Apr 10, 2024 13:05
[2024-04-11] VITALS (8 sets, daily range): BP systolic 100–112; BP diastolic 55–70; PULSE 84–104; RESP 16–18; TEMP 98–98.7; O2SAT 93–98
--- NOTE | 2024-04-11 09:05 | DVHPN2 ---
Subjective Patient continues to have pain, better controlled with IV pain medication Reviewed: Care Plan, H&P, Labs, Medications, Previous Orders, Radiology Changes from previous H/P or p: Changes Eyes: No Pain, No Vision change, No Conjunctivae inflammation, No Eyelid inflammation, No Other, No Redness ENT: No Ear pain, No Ear discharge, No Nose pain, No Nose discharge, No Nose congestion, No Mouth pain, No Mouth swelling, No Throat pain, No Throat swelling, No Other Cardiovascular: No Chest Pain, No Palpitations, No Orthopnea, No Paroxysmal Noc. Dyspnea, No Edema, No Lt Headedness, No Other Respiratory: No Cough, No Dry, No Shortness of breath, No SOB with excertion, No Wheezing, No Hemoptysis, No Pleuritic Pain, No Sputum, No Other Gastrointestinal: Nausea; No Vomiting; Abdominal Pain; No Diarrhea, No Constipation, No Melena, No Hematochezia, No Other Genitourinary: No Dysuria, No Frequency, No Incontinence, No Hematuria, No Retention, No Other Musculoskeletal: No other, No neck pain, No shoulder pain, No arm pain, No back pain, No hand pain, No leg pain, No foot pain Skin: No Rash, No Lesions, No Jaundice, No Bruising, No Other Objective Vitals Vital Signs Date Time Temp Pulse Resp B/P (MAP) Pulse Ox O2 Delivery O2 Flow Rate FiO2 04/11/24 08:30 98.1 93 17 100/60 (73) 95 98.1 04/10/24 20:00 Room Air* 0 21 Intake/Output Intake and Output 04/11/24 07:00 Intake Total 1210 ml Balance 1210 ml Intake Oral 0 ml IV Total 1210 ml # Voids 7 # Bowel Movements 1 General Appearance: Alert, Oriented X3, Cooperative, mild distress HEENT: Atraumatic, PERRLA, EOMI, Mucous membr. moist/pink Neck: Supple Lungs: Clear to auscultation, Normal air movement Cardiovascular: Regular rate, Normal S1, Normal S2, No murmurs, Gallops, Rubs Abdomen: Normal bowel sounds, Other (Positive Garsia's sign) Neuro: Normal speech, Cranial nerves 3-12 NL Psych/Mental Status: Mental status NL, Mood NL Medications Current Medications Medications Dose Ordered Sig/Marie Route Start Time Stop Time Status Last Admin Dose Admin Metronidazole 100 ml @ 100 mls/hr Q8HR IV 04/07/24 09:15 04/11/24 05:26 100 MLS/HR Diagnostic Test (Pha) 1 strip IQ4HR 04/07/24 12:00 04/11/24 03:52 1 STRIP Insulin Human Regular IQ4HR SC 04/07/24 12:00 04/11/24 00:29 3 UNITS Dextrose 50 ml UD PRN IV 04/07/24 09:15 Sodium Chloride 1,000 ml @ 60 mls/hr [id number] IV 04/07/24 09:15 Cancel Lorazepam 0.5 mg Q6HP PRN PO 04/07/24 09:15 Al Hydrox/Mg Hydrox/Simethicone 30 ml Q6HP PRN PO 04/07/24 09:15 Docusate Sodium 100 mg BIDPRN PRN PO 04/07/24 09:15 Acetaminophen 650 mg Q6HP PRN PO 04/07/24 09:15 04/10/24 21:36 650 MG Temazepam 15 mg QHSP PRN PO 04/07/24 09:15 Acetaminophen/ Hydrocodone Bitart 1 tab Q4HP PRN PO 04/07/24 09:15 04/09/24 23:40 1 TAB Ondansetron HCl 4 mg Q4HP PRN IV 04/07/24 09:15 04/10/24 20:32 4 MG Morphine Sulfate 2 mg Q4HPRN PRN IV 04/07/24 09:15 04/10/24 20:33 2 MG Hydralazine HCl 10 mg Q6HR PRN IV 04/07/24 09:45 Potassium Chloride 20 meq/ Dextrose/Lactated Ringer's 1,010 ml @ 100 mls/hr Q10H6M IV 04/09/24 12:00 04/11/24 05:27 100 MLS/HR Ceftriaxone Sodium 50 ml @ 100 mls/hr DAILY@09 IV 04/10/24 10:15 04/10/24 11:17 100 MLS/HR Pantoprazole Sodium 40 mg DAILY IV 04/11/24 10:00 Laboratory Results Laboratory Tests 04/10/24 10:55 Chemistry Test 04/10/24 10:55 Albumin 3.8 g/dL (3.2-4.8) Calcium Level 9.4 mg/dL (8.7-10.4) Total Protein 7.2 g/dL (5.7-8.2) Coagulation Test 04/10/24 10:55 Prothrombin Time 12.5 sec (9.3-11.8) H Prothrombin Time INR 1.19 (0.9-1.15) H Activated Partial Thromboplast Time 29.6 SEC (24.5-34.5) LFT Test 04/10/24 10:55 Alanine Aminotransferase (ALT) 20 U/L (7-40) Alkaline Phosphatase 165 U/L (46-116) H Aspartate Amino Transferase (AST) 18 U/L (13-40) Total Bilirubin 1.1 mg/dL (0.2-1.0) H Urinalysis Test 04/07/24 19:19 Urine Color Light-yellow (Yellow) Urine Clarity Clear (Clear) Urine pH 7.5 (5.0-9.0) Urine Specific [place] 1.021 (1.001-1.035) Urine Protein Negative (Negative) Urine Ketones Negative (Negative) Urine Blood Negative /uL (Negative) Urine Nitrite Negative (Negative) Urine Bilirubin Negative (Negative) Urine Urobilinogen Normal mg/dL (Negative) Urine Leukocyte Esterase Negative /uL (Negative) Urine RBC <1 /hpf (0 - 3) Urine WBC 1 /hpf (0 - 3) Urine Squamous Epithelial Cells None seen /hpf (<5) Urine Bacteria None seen /hpf (None Seen) Urine Mucus Few (None Seen) Urine Glucose Trace mg/dL (Normal) Labs and/or images reviewed: Labs reviewed by me, Image(s) reviewed by me Assessment/Plan Assessment/Plan Impression: -sepsis -cholelithiasis, probable cholecystitis -primary hypertension Plan: Events: HIDA scan performed with results pending. Patient continues to have intermittent fevers and abdominal pain. -surgical consultation: Recommendations appreciated -continue current IV fluids -pain management -antibiotic therapy: Flagyl, add Rocephin -NPO status -repeat labs in a.m. Total time spent with patient discussing and formulating plan of care: 35 minutes. This medical document was created using an electronic medical record system with [employer] system. Although this document has been carefully reviewed, there may still be some phonetic and typographical errors. These areas are purely typographical due to imperfections of the software programs, and do not reflect any compromise in the patient's medical care. Plan discussed with: Patient, Other (RN) My Orders Orders - DIMITRI CHEEMA NP Procedure Category Date Status Time Ceftriaxone 1gm/50ml PHA 04/10/24 In Process D5w (Rocephin) 10:15 Pantoprazole PHA 04/11/24 In Process (Protonix) 10:00 Complete Blood Count LAB 04/12/24 Verified 04:00 Comprehensive LAB 04/12/24 Verified Metabolic Panel 04:00 Date of Service: Apr 11, 2024 Billing Provider: DIMITRI CHEEMA NP Common Visit Codes: [id number] INP/OBS CARE(HIGH) DIMITRI CHEEMA NP Apr 11, 2024 09:05
[2024-04-11] MEDS: PANTOPRAZOLE 40 MG/10 ML VIAL INJ IV SCH (09:32)
--- NOTE | 2024-04-11 14:50 | DVHINCON2 ---
Date of service: Apr 11, 2024 History of Present Illness 62-year-old male complaining of five day history of right upper quadrant abdominal pain associated without fevers, chills, nausea or vomiting. Past Medical History Denies Past Surgical History Corneal transplant. Denies any abdominal surgeries. Family History Noncontributory Social History Denies alcohol, tobacco, IV drug use. Allergies: Coded Allergies: NO KNOWN ALLERGIES (Unverified , 04/07/24) Current Medications Current Medications Medications (Trade) Dose Ordered Sig/Marie Route PRN Reason Start Time Stop Time Status Last Admin Pantoprazole Sodium (Protonix) 40 mg DAILY IV 04/11/24 10:00 04/11/24 09:32 Vital Signs Vital Signs Date Time Temp Pulse Resp B/P (MAP) Pulse Ox O2 Delivery O2 Flow Rate FiO2 04/11/24 13:07 97 16 107/66 04/11/24 12:36 98.3 93 98.3 04/11/24 08:00 Room Air* 0 21 Physical Exam GEN: Age-appropriate male in no acute distress. Alert. HEENT: Normocephalic. Atraumatic. Moist mucous membranes. Anicteric sclerae. CV: RRR Respiratory: CTAB ABD: Minimal diffuse tenderness to palpation especially in the right upper quadrant with localized right upper quadrant guarding. Nondistended. Abdominal ultrasound: Cholelithiasis with gallstone at the neck of the gallbladder. No biliary dilatation. HIDA scan: Official read is still pending however appears that there is nonvisualization of the gallbladder. Labs/Diagnostic Data Labs Test 04/11/24 12:31 04/10/24 10:55 04/07/24 19:19 04/07/24 03:15 Range/Units POC Glucose 172 H 70-106 mg/dl White Blood Count 15.1 H 4.4-10.8 10^3/uL Red Blood Count 4.68 4.5-5.90 10^6/uL Hemoglobin 14.1 13.5-17.5 g/dL Hematocrit 42.2 41.0-53.0 % Mean Corpuscular Volume 90.1 80.0-100.0 fL Mean Corpuscular Hemoglobin 30.1 28.0-32.0 pg Mean Corpuscular Hemoglobin Concent 33.4 32.0-36.0 g/dL Red Cell Distribution Width 13.7 11.8-14.3 % Platelet Count 214 140-450 10^3/uL Mean Platelet Volume 9.8 6.9-10.8 fL Neutrophils (%) (Auto) 89.4 H 37.0-80.0 % Lymphocytes (%) (Auto) 4.0 L 10.0-50.0 % Monocytes (%) (Auto) 6.3 0.0-12.0 % Eosinophils (%) (Auto) 0.0 0.0-7.0 % Basophils (%) (Auto) 0.3 0.0-2.0 % Neutrophils # (Auto) 13.5 H 1.6-8.6 10 ^3/uL Lymphocytes # (Auto) 0.6 0.4-5.4 10 ^3/uL Monocytes # (Auto) 1.0 0-1.3 10 ^3/uL Eosinophils # (Auto) 0 0-0.8 10 ^3/uL Basophils # (Auto) 0 0-0.2 10 ^3/uL Nucleated Red Blood Cells 0.0 % Prothrombin Time 12.5 H 9.3-11.8 sec Prothrombin Time INR 1.19 H 0.9-1.15 Activated Partial Thromboplast Time 29.6 24.5-34.5 SEC Sodium Level 135 L 136-145 mmol/L Potassium Level 4.0 3.5-5.1 mmol/L Chloride Level 105 98-107 mmol/L Carbon Dioxide Level 21 20-31 mmol/L Anion Gap 9 5-15 Blood Urea Nitrogen 14 9-23 mg/dL Creatinine 0.82 0.700-1.30 mg/dL Glomerular Filtration Rate Calc 99 >90 mL/min BUN/Creatinine Ratio 17.1 10.0-20.0 Serum Glucose 152 H 74-106 mg/dL Calcium Level 9.4 8.7-10.4 mg/dL Total Bilirubin 1.1 H 0.2-1.0 mg/dL Aspartate Amino Transferase (AST) 18 13-40 U/L Alanine Aminotransferase (ALT) 20 7-40 U/L Alkaline Phosphatase 165 H 46-116 U/L Total Protein 7.2 5.7-8.2 g/dL Albumin 3.8 3.2-4.8 g/dL Urine Color Light-yellow Yellow Urine Clarity Clear Clear Urine pH 7.5 5.0-9.0 Urine Specific [place] 1.021 1.001-1.035 Urine Protein Negative Negative Urine Ketones Negative Negative Urine Blood Negative Negative /uL Urine Nitrite Negative Negative Urine Bilirubin Negative Negative Urine Urobilinogen Normal Negative mg/dL Urine Leukocyte Esterase Negative Negative /uL Urine RBC <1 0 - 3 /hpf Urine WBC 1 0 - 3 /hpf Urine Squamous Epithelial Cells None seen <5 /hpf Urine Bacteria None seen None Seen /hpf Urine Mucus Few None Seen Urine Glucose Trace Normal mg/dL Lipase 57 H 12-53 U/L Assessment 1. Acute cholecystitis Plan/Recommendation 1. Laparoscopic cholecystectomy possible open surgery Informed consent: The surgery and its risks including but not limited to infection, bleeding requiring possible blood transfusion with the risk of hepatitis or HIV infection, open surgery, cystic duct leak or retained common bile duct stone requiring further intervention such as an ERCP, possible perioperative ID or stroke were explained to the patient. All questions were answered to his satisfaction. He expressed verbal understanding and wished to proceed with the surgery. Plan discussed with: Patient KHLOE BRAMBILA MD Apr 11, 2024 14:50
[2024-04-12] VITALS (9 sets, daily range): BP systolic 113–132; BP diastolic 65–80; PULSE 74–112; RESP 16–18; TEMP 97.4–98.7; O2SAT 92–98
[2024-04-12 06:15] LABS: Basophils # (auto) 0 10 ^3/uL (0-0.2); Basophils % (auto) 0.2 % (0.0-2.0); Eosinophils # (auto) 0 10 ^3/uL (0-0.8); Eosinophils % (auto) 0.1 % (0.0-7.0); Hematocrit 36.9 % (41.0-53.0); Hemoglobin 12.4 g/dL (13.5-17.5); Lymphocytes % (auto) 7.8 % (10.0-50.0); Mean Corpuscular Hemoglobin 30.4 pg (28.0-32.0); Mean Corpuscular Hgb Conc. 33.5 g/dL (32.0-36.0); Mean Corpuscular Volume 90.8 fL (80.0-100.0); Monocytes # (auto) 0.9 10 ^3/uL (0-1.3); Monocytes % (auto) 7.1 % (0.0-12.0); Neutrophils # (auto) 10.5 10 ^3/uL (1.6-8.6); Neutrophils % (auto) 84.8 % (37.0-80.0); Platelet Count (auto) 149 10^3/uL (140-450); Red Blood Cells 4.07 10^6/uL (4.5-5.90); Red Cell Distribution Width 14.5 % (11.8-14.3); White Blood Cell 12.4 10^3/uL (4.4-10.8)
[2024-04-12 06:36] LABS: Alanine Aminotransferase 21 U/L (7-40); Albumin 3.4 g/dL (3.2-4.8); Anion Gap 8 (5-15); Aspartate Aminotransferase 14 U/L (13-40); BUN/Creatinine Ratio 26.3 (10.0-20.0); Blood Urea Nitrogen 20 mg/dL (9-23); Calcium 9.2 mg/dL (8.7-10.4); Carbon Dioxide 23 mmol/L (20-31); Potassium 4.1 mmol/L (3.5-5.1); Sodium 141 mmol/L (136-145)
[2024-04-12 06:37] LABS: Alkaline Phosphatase 165 U/L (46-116); Bilirubin, Total 0.4 mg/dL (0.2-1.0); Chloride 110 mmol/L (98-107); Glucose 142 mg/dL (74-106); Total Protein 6.4 g/dL (5.7-8.2)
--- NOTE | 2024-04-12 08:10 | DVH ---
CHEST RADIOGRAPH Indication: for procedure Technique: Single frontal view of the chest was obtained Comparison: None FINDINGS: Lines and Tubes: None Lungs: Patchy opacity in the left lower lung may represent atelectasis versus airspace disease. There is no right lung consolidation. Pleura: No effusion.No pneumothorax. Cardiomediastinal contours: Unremarkable Bones: No acute osseous abnormality. IMPRESSION: 1. Patchy opacity in the left lower lung may represent atelectasis versus airspace disease. HS:Y
--- NOTE | 2024-04-12 08:22 | DVH ---
CLINICAL INFORMATION: 63 years old, Male; cholecystitis. Right upper quadrant pain. TECHNIQUE: 4.7 mCi of Choletec were administered intravenously. Images of the upper abdomen were obta ined at 2 minute intervals up to a total time of 60 minutes. COMPARISON: Ultrasound dated 04/07/[address] dated 04/07/2024. FINDINGS: Gallbladder is not visualized on images obtained up to 60 minutes, or on delayed images at 4:00 a.m.. There is prompt excretion of activity from the biliary ductal system into the small bowel . IMPRESSION: 1. Gallbladder not visualized up to 4 hours after injection, suspected acute cholecystitis in the juan m ropriate clinical setting. Correlate with clinical findings. 2. No evidence for common bile duct obstruction.
--- NOTE | 2024-04-12 09:29 | DVHPN2 ---
Subjective Patient continues to have pain, better controlled with IV pain medication Reviewed: Care Plan, H&P, Labs, Medications, Previous Orders, Radiology Changes from previous H/P or p: No Changes Eyes: No Pain, No Vision change, No Conjunctivae inflammation, No Eyelid inflammation, No Other, No Redness ENT: No Ear pain, No Ear discharge, No Nose pain, No Nose discharge, No Nose congestion, No Mouth pain, No Mouth swelling, No Throat pain, No Throat swelling, No Other Cardiovascular: No Chest Pain, No Palpitations, No Orthopnea, No Paroxysmal Noc. Dyspnea, No Edema, No Lt Headedness, No Other Respiratory: No Cough, No Dry, No Shortness of breath, No SOB with excertion, No Wheezing, No Hemoptysis, No Pleuritic Pain, No Sputum, No Other Gastrointestinal: Nausea; No Vomiting; Abdominal Pain; No Diarrhea, No Constipation, No Melena, No Hematochezia, No Other Genitourinary: No Dysuria, No Frequency, No Incontinence, No Hematuria, No Retention, No Other Musculoskeletal: No other, No neck pain, No shoulder pain, No arm pain, No back pain, No hand pain, No leg pain, No foot pain Skin: No Rash, No Lesions, No Jaundice, No Bruising, No Other Objective Vitals Vital Signs Date Time Temp Pulse Resp B/P (MAP) Pulse Ox O2 Delivery O2 Flow Rate FiO2 04/12/24 08:30 98.7 80 17 116/71 (86) 95 98.7 04/11/24 20:15 Room Air* 0 21 Intake/Output Intake and Output 04/12/24 07:00 Intake Total 1360 ml Balance 1360 ml Intake Oral 0 ml IV Total 1360 ml # Voids 2 # Bowel Movements 2 General Appearance: Alert, Oriented X3, Cooperative, mild distress HEENT: Atraumatic, PERRLA, EOMI, Mucous membr. moist/pink Neck: Supple Lungs: Clear to auscultation, Normal air movement Cardiovascular: Regular rate, Normal S1, Normal S2, No murmurs, Gallops, Rubs Abdomen: Normal bowel sounds, Other (Positive Garsia's sign) Neuro: Normal speech, Cranial nerves 3-12 NL Psych/Mental Status: Mental status NL, Mood NL Medications Current Medications Medications Dose Ordered Sig/Marie Route Start Time Stop Time Status Last Admin Dose Admin Metronidazole 100 ml @ 100 mls/hr Q8HR IV 04/07/24 09:15 04/12/24 06:00 100 MLS/HR Diagnostic Test (Pha) 1 strip IQ4HR 04/07/24 12:00 04/12/24 08:01 1 STRIP Insulin Human Regular IQ4HR SC 04/07/24 12:00 04/11/24 21:01 3 UNITS Dextrose 50 ml UD PRN IV 04/07/24 09:15 Sodium Chloride 1,000 ml @ 60 mls/hr [id number] IV 04/07/24 09:15 Cancel Al Hydrox/Mg Hydrox/Simethicone 30 ml Q6HP PRN PO 04/07/24 09:15 Docusate Sodium 100 mg BIDPRN PRN PO 04/07/24 09:15 Acetaminophen 650 mg Q6HP PRN PO 04/07/24 09:15 04/10/24 21:36 650 MG Temazepam 15 mg QHSP PRN PO 04/07/24 09:15 Acetaminophen/ Hydrocodone Bitart 1 tab Q4HP PRN PO 04/07/24 09:15 04/11/24 16:56 1 TAB Ondansetron HCl 4 mg Q4HP PRN IV 04/07/24 09:15 04/12/24 01:23 4 MG Morphine Sulfate 2 mg Q4HPRN PRN IV 04/07/24 09:15 04/12/24 01:22 2 MG Hydralazine HCl 10 mg Q6HR PRN IV 04/07/24 09:45 Potassium Chloride 20 meq/ Dextrose/Lactated Ringer's 1,010 ml @ 100 mls/hr Q10H6M IV 04/09/24 12:00 04/12/24 05:59 100 MLS/HR Ceftriaxone Sodium 50 ml @ 100 mls/hr DAILY@09 IV 04/10/24 10:15 04/11/24 09:31 100 MLS/HR Pantoprazole Sodium 40 mg DAILY IV 04/11/24 10:00 04/11/24 09:32 40 MG Laboratory Results Laboratory Tests 04/12/24 05:22 Chemistry Test 04/12/24 05:22 Albumin 3.4 g/dL (3.2-4.8) Calcium Level 9.2 mg/dL (8.7-10.4) Total Protein 6.4 g/dL (5.7-8.2) LFT Test 04/12/24 05:22 Alanine Aminotransferase (ALT) 21 U/L (7-40) Alkaline Phosphatase 165 U/L (46-116) H Aspartate Amino Transferase (AST) 14 U/L (13-40) Total Bilirubin 0.4 mg/dL (0.2-1.0) Urinalysis Test 04/07/24 19:19 Urine Color Light-yellow (Yellow) Urine Clarity Clear (Clear) Urine pH 7.5 (5.0-9.0) Urine Specific [place] 1.021 (1.001-1.035) Urine Protein Negative (Negative) Urine Ketones Negative (Negative) Urine Blood Negative /uL (Negative) Urine Nitrite Negative (Negative) Urine Bilirubin Negative (Negative) Urine Urobilinogen Normal mg/dL (Negative) Urine Leukocyte Esterase Negative /uL (Negative) Urine RBC <1 /hpf (0 - 3) Urine WBC 1 /hpf (0 - 3) Urine Squamous Epithelial Cells None seen /hpf (<5) Urine Bacteria None seen /hpf (None Seen) Urine Mucus Few (None Seen) Urine Glucose Trace mg/dL (Normal) Labs and/or images reviewed: Labs reviewed by me, Image(s) reviewed by me Assessment/Plan Assessment/Plan Impression: -sepsis -cholelithiasis, with Cholecystitis -primary hypertension Plan: Events: Plans for Surgery this am -surgical consultation: Recommendations reviewed. HIDA positive for Cholecystitis -continue current IV fluids -pain management -antibiotic therapy: Flagyl, add Rocephin -repeat labs in a.m. Total time spent with patient discussing and formulating plan of care: 35 minutes. This medical document was created using an electronic medical record system with [employer] dictation system. Although this document has been carefully reviewed, there may still be some phonetic and typographical errors. These areas are purely typographical due to imperfections of the software programs, and do not reflect any compromise in the patient's medical care. Plan discussed with: Patient, Other (RN) My Orders Orders - DIMITRI CHEEMA CYCLE SPECIALIST Procedure Category Date Status Time Incentive Spirometry ORDERS 04/12/24 Transmitted Q 1hr 09:23 Comprehensive LAB 04/13/24 Verified Metabolic Panel 04:00 Complete Blood Count LAB 04/13/24 Verified 04:00 Date of Service: Apr 12, 2024 Billing Provider: DIMITRI CHEEMA NP Common Visit Codes: [id number] INP/OBS CARE(HIGH) DIMITRI CHEEMA NP Apr 12, 2024 09:29
[2024-04-12] MEDS: ceFAZolin 2 GM/D5W100ml 100 ML IV ONE (09:41)
[2024-04-12] MEDS ORDERED: fentaNYL CITRATE 100 MCG/2 ML VL ONE (10:25)
[2024-04-12] MEDS ORDERED: MEPERIDINE HCL (50 MG/ML) 1 ML VIAL ONE (10:25)
[2024-04-12] MEDS ORDERED: MIDAZOLAM HCL 2MG/2ML 2ml VIAL (1mg/ml) ONE (10:25)
[2024-04-12] MEDS ORDERED: DexAMETHasone SOD PHOS 10MG/1ML VIAL INJ ONE (10:26)
[2024-04-12] MEDS ORDERED: ONDANSETRON HCL 4 MG/2 ML VIAL ONE (10:26)
[2024-04-12] MEDS ORDERED: PROPOFOL 10 MG/ML 20 ML IV ONE (10:26)
[2024-04-12] MEDS: LIDOCAINE W/ EPINEPHRINE 1% 20ML VIAL ONE (11:50)
[2024-04-12] MEDS ORDERED: HYDROmorphone HCL 2 MG/ML VL/or syr IV PRN (12:15)
[2024-04-12] MEDS ORDERED: MIDAZOLAM HCL 2MG/2ML 2ml VIAL (1mg/ml) IV PRN (12:15)
[2024-04-12] MEDS ORDERED: ePHEDrine SULFATE 50 MG/ML AMP IV PRN (12:15)
[2024-04-12] MEDS ORDERED: MORPHINE SULFATE 4 MG/ML SYR/VIAL IV PRN (12:15)
[2024-04-12] MEDS ORDERED: hydrALAZINE HCL 20 MG/ML VL IV PRN (12:15)
[2024-04-12] MEDS: ONDANSETRON HCL 4 MG/2 ML VIAL IV ONE (12:15)
--- NOTE | 2024-04-12 12:18 | DVHOP2 ---
Operative Report - 2 Report Details Date: 04/12/24 Preop Diagnosis: Acute cholecystitis Postop Diagnosis: Gangrenous cholecystitis with perforation Surgeon: Khloe Sage MD Instrumentation Instructor: None Anesthesiologist: Dr. Burr Anesthesia: General, Local Drains: 15 [place] Jose drain in the right upper quadrant Consent: The surgery and its risks including but not limited to infection, bleeding requiring possible blood transfusion with the risk of hepatitis or HIV infection, open cholecystectomy, cystic duct leak or retained common bile duct stone requiring further intervention such as an ERCP, possible perioperative [place] or stroke were explained to the patient and his family. All questions were answered to his satisfaction. The patient expressed verbal understanding and wished to proceed with the surgery. Complications: None Estimated Blood Loss: 80 mL Fluids: 800 mL Findings: Gangrenous perforated cholecystitis with abscess Name of Procedure Performed Laparoscopic cholecystectomy Procedure Details Procedure Details: After induction of general anesthesia, patient's abdomen was prepped and draped in standard surgical fashion. A small infraumbilical incision was made and this incision was taken through the abdominal wall down to the fascia which was opened sharply. Peritoneum was then bluntly divided gaining access to the intra-abdominal cavity. Interrupted 0 Vicryl sutures were placed through the fascial incision and using an open technique, Yoselin trocar was introduced and secured using the Vicryl sutures. Abdomen was insufflated to 15 mmHg and camera was inserted. Visual examination of the intestine under the fascial incision appeared normal without injury. Under direct visualization a 5 mm bladeless trocar was placed in the subxiphoid region and two additional 5 mm bladeless trocars were placed in the right upper quadrant all under direct visualization. Examination of the right upper quadrant revealed that omentum was adherent to the edge of the liver secondary to inflammatory adhesions. Once this was peeled off there was immediate pus that was drained from this area. Once the omentum was peeled off the gangrenous gallbladder was visualized. Endo needle was used to 1st decompress the gallbladder. Gallbladder was then grasped and retracted in a cephalad direction. Careful blunt dissection was performed to get down to the neck of the gallbladder. Careful blunt dissection was performed to identify the cystic duct which appeared slightly dilated and cystic artery. The cystic artery was clipped and divided using Endoclips without complication. In order to divide the cystic duct, the subxiphoid 5 mm trocar was replaced with a 12 mm bladeless trocar. The cystic duct was then stapled and divided using endovascular stapler without complication. Gallbladder was then removed from the liver bed using electrocautery. There was more pus drained from the gallbladder as well as some stones that were spilled. All visible stones were retrieved and removed. Gallbladder was then finally removed off the liver bed and removed from the abdominal cavity using an endo pouch bag and sent off the surgical field. Abdomen was then re-insufflated and hemostasis in the liver bed was achieved using electrocautery. Right upper quadrant was then well irrigated. Kristina powder was sprayed onto the gallbladder fossa for additional hemostasis and a 15 [place] Jose drain was placed into the right upper quadrant and brought out through the 5 mm lateral trocar site and secured to the skin using 3-0 nylon sutures. Rest of the trocars were then removed under direct visualization as the abdomen was deflated. Additional interrupted 0 Vicryl sutures were placed through the infraumbilical fascial incision and the sutures were tied down closing off the infraumbilical fascia. Surgical sites were irrigated injected with 20 mL of 1% lidocaine with epinephrine. Skin incisions were closed using emir. Surgical sites were cleaned and dried and dressings were applied. Sponge, needle, instrument count at the end of the case were reported to be correct by the nursing staff. The patient tolerated procedure well was awakened, extubated and transferred to recovery in stable condition. Specimen: Gallbladder and gallstone Condition Guarded Disposition Still a Patient KHLOE SAGE MD Apr 12, 2024 12:18
[2024-04-12] MEDS: KETOROLAC TROMETH 30 MG/ML 1ML VIAL IV ONE (12:45)
[2024-04-13] VITALS (7 sets, daily range): BP systolic 104–123; BP diastolic 62–70; PULSE 54–74; RESP 16–20; TEMP 97.8–98.2; O2SAT 94–97
[2024-04-13 06:50] LABS: Basophils # (auto) 0 10 ^3/uL (0-0.2); Eosinophils # (auto) 0 10 ^3/uL (0-0.8); Hematocrit 34.5 % (41.0-53.0); Hemoglobin 11.5 g/dL (13.5-17.5); Lymphocytes # (auto) 0.9 10 ^3/uL (0.4-5.4); Lymphocytes % (auto) 6.9 % (10.0-50.0); Mean Corpuscular Hemoglobin 30.2 pg (28.0-32.0); Mean Corpuscular Hgb Conc. 33.4 g/dL (32.0-36.0); Mean Corpuscular Volume 90.2 fL (80.0-100.0); Monocytes # (auto) 0.8 10 ^3/uL (0-1.3); Monocytes % (auto) 6.6 % (0.0-12.0); Neutrophils # (auto) 11.1 10 ^3/uL (1.6-8.6); Neutrophils % (auto) 86.5 % (37.0-80.0); Platelet Count (auto) 162 10^3/uL (140-450); Red Blood Cells 3.82 10^6/uL (4.5-5.90); Red Cell Distribution Width 14.7 % (11.8-14.3); White Blood Cell 12.8 10^3/uL (4.4-10.8)
[2024-04-13 07:12] LABS: Alanine Aminotransferase 18 U/L (7-40); Albumin 3.2 g/dL (3.2-4.8); Anion Gap 7 (5-15); Aspartate Aminotransferase 24 U/L (13-40); BUN/Creatinine Ratio 30.7 (10.0-20.0); Bilirubin, Total 0.3 mg/dL (0.2-1.0); Calcium 8.9 mg/dL (8.7-10.4); Carbon Dioxide 22 mmol/L (20-31); Potassium 4.2 mmol/L (3.5-5.1); Sodium 138 mmol/L (136-145); Total Protein 6.2 g/dL (5.7-8.2)
[2024-04-13 07:16] LABS: Alkaline Phosphatase 169 U/L (46-116); Blood Urea Nitrogen 23 mg/dL (9-23); Chloride 109 mmol/L (98-107); Glucose 159 mg/dL (74-106)
--- NOTE | 2024-04-13 09:36 | DVHPN2 ---
Progress Note - Dictate Date Seen: Apr 13, 2024 Medical Necessity Reason Pt with a Central, PICC or Fol: No Subjective E: no major events o/n. no complaints. derrick clear liquid diet. vital signs Vital Sign Date Time Temp Pulse Resp B/P (MAP) Pulse Ox O2 Delivery O2 Flow Rate FiO2 04/13/24 08:15 Room Air* 0 21 04/13/24 05:00 97.8 56 18 116/66 (83) 97 97.8 Total Intake and Output 04/12/24 04/12/24 04/13/24 15:00 23:00 07:00 Intake Total 950 ml 1025 ml Output Total 20 ml Balance -20 ml 950 ml 1025 ml medications Current Medications Medications Dose Ordered Sig/Marie Route Start Time Stop Time Status Last Admin Dose Admin Metronidazole 100 ml @ 100 mls/hr Q8HR IV 04/07/24 09:15 04/13/24 04:45 100 MLS/HR Diagnostic Test (Pha) 1 strip IQ4HR 04/07/24 12:00 04/13/24 08:20 1 STRIP Insulin Human Regular IQ4HR SC 04/07/24 12:00 04/13/24 08:28 3 UNITS Dextrose 50 ml UD PRN IV 04/07/24 09:15 Sodium Chloride 1,000 ml @ 60 mls/hr [id number] IV 04/07/24 09:15 Cancel Al Hydrox/Mg Hydrox/Simethicone 30 ml Q6HP PRN PO 04/07/24 09:15 Docusate Sodium 100 mg BIDPRN PRN PO 04/07/24 09:15 Acetaminophen 650 mg Q6HP PRN PO 04/07/24 09:15 04/13/24 09:06 650 MG Temazepam 15 mg QHSP PRN PO 04/07/24 09:15 Acetaminophen/ Hydrocodone Bitart 1 tab Q4HP PRN PO 04/07/24 09:15 04/11/24 16:56 1 TAB Ondansetron HCl 4 mg Q4HP PRN IV 04/07/24 09:15 04/12/24 01:23 4 MG Morphine Sulfate 2 mg Q4HPRN PRN IV 04/07/24 09:15 04/12/24 13:16 2 MG Hydralazine HCl 10 mg Q6HR PRN IV 04/07/24 09:45 Potassium Chloride 20 meq/ Dextrose/Lactated Ringer's 1,010 ml @ 100 mls/hr Q10H6M IV 04/09/24 12:00 04/12/24 05:59 100 MLS/HR Ceftriaxone Sodium 50 ml @ 100 mls/hr DAILY@09 IV 04/10/24 10:15 04/13/24 08:32 100 MLS/HR Pantoprazole Sodium 40 mg DAILY IV 04/11/24 10:00 04/13/24 09:06 40 MG objective GEN: NAD ABD: surgical dressings clean and dry. SPENCER 20 mL serosang. laboratory and microbiology Laboratory Tests 04/13/24 06:14 Test 04/13/24 06:14 Range/Units Serum Glucose 159 H 74-106 mg/dL Assessment/Plan A: 1. s/p lap cholecystectomy POD #1 doing well. P: 1. dc plan per hospitalist. 2. if discharged, f/u next week to clinic. call [phone] for appt. 3. remove bandages tomorrow. ok to get incisions wet tomorrow. 4. teach SPENCER care. measure output and write down the amt Plan discussed with: Patient KHLOE BRAMBILA MD Apr 13, 2024 09:36
--- NOTE | 2024-04-13 13:35 | DVHPN2 ---
Subjective The patient is seen and examined at bedside. The patient still have abdominal pain 12/22 today. Reviewed: Care Plan, H&P, Labs, Medications, Previous Orders, Radiology Changes from previous H/P or p: No Changes Eyes: No Pain, No Vision change, No Conjunctivae inflammation, No Eyelid inflammation, No Other, No Redness ENT: No Ear pain, No Ear discharge, No Nose pain, No Nose discharge, No Nose congestion, No Mouth pain, No Mouth swelling, No Throat pain, No Throat swelling, No Other Cardiovascular: No Chest Pain, No Palpitations, No Orthopnea, No Paroxysmal Noc. Dyspnea, No Edema, No Lt Headedness, No Other Respiratory: No Cough, No Dry, No Shortness of breath, No SOB with excertion, No Wheezing, No Hemoptysis, No Pleuritic Pain, No Sputum, No Other Gastrointestinal: Nausea; No Vomiting; Abdominal Pain; No Diarrhea, No Constipation, No Melena, No Hematochezia, No Other Genitourinary: No Dysuria, No Frequency, No Incontinence, No Hematuria, No Retention, No Other Musculoskeletal: No other, No neck pain, No shoulder pain, No arm pain, No back pain, No hand pain, No leg pain, No foot pain Skin: No Rash, No Lesions, No Jaundice, No Bruising, No Other Objective Vitals Vital Signs Date Time Temp Pulse Resp B/P (MAP) Pulse Ox O2 Delivery O2 Flow Rate FiO2 04/13/24 09:00 98.0 54 20 114/70 (85) 95 98.0 04/13/24 08:15 Room Air* 0 21 Intake/Output Intake and Output 04/13/24 07:00 Intake Total 1975 ml Output Total 20 ml Balance 1955 ml Intake Oral 1975 ml Drainage Total 20 ml # Voids 6 # Bowel Movements 4 General Appearance: Alert, Oriented X3, Cooperative, mild distress HEENT: Atraumatic, PERRLA, EOMI, Mucous membr. moist/pink Neck: Supple Lungs: Clear to auscultation, Normal air movement Cardiovascular: Regular rate, Normal S1, Normal S2, No murmurs, Gallops, Rubs Abdomen: Normal bowel sounds, Other (Positive Garsia's sign) Neuro: Normal speech, Cranial nerves 3-12 NL Psych/Mental Status: Mental status NL, Mood NL Medications Current Medications Medications Dose Ordered Sig/Marie Route Start Time Stop Time Status Last Admin Dose Admin Metronidazole 100 ml @ 100 mls/hr Q8HR IV 04/07/24 09:15 04/13/24 04:45 100 MLS/HR Diagnostic Test (Pha) 1 strip IQ4HR 04/07/24 12:00 04/13/24 11:51 1 STRIP Insulin Human Regular IQ4HR SC 04/07/24 12:00 04/13/24 11:54 3 UNITS Dextrose 50 ml UD PRN IV 04/07/24 09:15 Sodium Chloride 1,000 ml @ 60 mls/hr [id number] IV 04/07/24 09:15 Cancel Al Hydrox/Mg Hydrox/Simethicone 30 ml Q6HP PRN PO 04/07/24 09:15 Docusate Sodium 100 mg BIDPRN PRN PO 04/07/24 09:15 Acetaminophen 650 mg Q6HP PRN PO 04/07/24 09:15 04/13/24 09:06 650 MG Temazepam 15 mg QHSP PRN PO 04/07/24 09:15 Acetaminophen/ Hydrocodone Bitart 1 tab Q4HP PRN PO 04/07/24 09:15 04/11/24 16:56 1 TAB Ondansetron HCl 4 mg Q4HP PRN IV 04/07/24 09:15 04/12/24 01:23 4 MG Morphine Sulfate 2 mg Q4HPRN PRN IV 04/07/24 09:15 04/12/24 13:16 2 MG Hydralazine HCl 10 mg Q6HR PRN IV 04/07/24 09:45 Potassium Chloride 20 meq/ Dextrose/Lactated Ringer's 1,010 ml @ 100 mls/hr Q10H6M IV 04/09/24 12:00 04/12/24 05:59 100 MLS/HR Ceftriaxone Sodium 50 ml @ 100 mls/hr DAILY@09 IV 04/10/24 10:15 04/13/24 08:32 100 MLS/HR Pantoprazole Sodium 40 mg DAILY IV 04/11/24 10:00 04/13/24 09:06 40 MG Laboratory Results Laboratory Tests 04/13/24 06:14 Chemistry Test 04/13/24 06:14 Albumin 3.2 g/dL (3.2-4.8) Calcium Level 8.9 mg/dL (8.7-10.4) Total Protein 6.2 g/dL (5.7-8.2) LFT Test 04/13/24 06:14 Alanine Aminotransferase (ALT) 18 U/L (7-40) Alkaline Phosphatase 169 U/L (46-116) H Aspartate Amino Transferase (AST) 24 U/L (13-40) Total Bilirubin 0.3 mg/dL (0.2-1.0) Urinalysis Test 04/07/24 19:19 Urine Color Light-yellow (Yellow) Urine Clarity Clear (Clear) Urine pH 7.5 (5.0-9.0) Urine Specific [place] 1.021 (1.001-1.035) Urine Protein Negative (Negative) Urine Ketones Negative (Negative) Urine Blood Negative /uL (Negative) Urine Nitrite Negative (Negative) Urine Bilirubin Negative (Negative) Urine Urobilinogen Normal mg/dL (Negative) Urine Leukocyte Esterase Negative /uL (Negative) Urine RBC <1 /hpf (0 - 3) Urine WBC 1 /hpf (0 - 3) Urine Squamous Epithelial Cells None seen /hpf (<5) Urine Bacteria None seen /hpf (None Seen) Urine Mucus Few (None Seen) Urine Glucose Trace mg/dL (Normal) Labs and/or images reviewed: Labs reviewed by me Assessment/Plan Assessment/Plan Cholelithiasis Biliary colic Status post cholecystectomy Leukocytosis Severe abdominal pain Nausea and vomiting Hypertension Continuing current management. Continuing with IV fluid. Continuing with IV pain medication . Continuing Zofran p.r.n. for nausea or vomiting. Continuing IV antibiotic with Flagyl. Continuing hypertensive medication. Advance diet per surgeon. Patient is postop day 1.. Advised the patient to be out of bed and ambulate. Plan discussed with: Patient Date of Service: Apr 13, 2024 Billing Provider: FANNIE FREY MD Common Visit Codes: [id number] INP/OBS CARE(HIGH) FANNIE FREY MD Apr 13, 2024 13:35
[2024-04-14] VITALS (7 sets, daily range): BP systolic 120–139; BP diastolic 69–81; PULSE 60–71; RESP 18–20; TEMP 97.9–98.5; O2SAT 94–97
--- NOTE | 2024-04-14 08:16 | DVHDS2 ---
Discharge Summary Date of Admission Apr 07, 2024 at 09:09 Date of Discharge: Apr 14, 2024 Admitting Diagnosis Cholelithiasis Biliary colic Leukocytosis Severe abdominal pain Nausea and vomiting Hypertension Labs/Diagnostic Data: Laboratory Results Test 04/14/24 03:38 04/13/24 06:14 04/10/24 10:55 04/07/24 19:19 POC Glucose 139 mg/dl (70-106) White Blood Count 12.8 10^3/uL (4.4-10.8) Red Blood Count 3.82 10^6/uL (4.5-5.90) Hemoglobin 11.5 g/dL (13.5-17.5) Hematocrit 34.5 % (41.0-53.0) Mean Corpuscular Volume 90.2 fL (80.0-100.0) Mean Corpuscular Hemoglobin 30.2 pg (28.0-32.0) Mean Corpuscular Hemoglobin Concent 33.4 g/dL (32.0-36.0) Red Cell Distribution Width 14.7 % (11.8-14.3) Platelet Count 162 10^3/uL (140-450) Mean Platelet Volume 9.9 fL (6.9-10.8) Neutrophils (%) (Auto) 86.5 % (37.0-80.0) Lymphocytes (%) (Auto) 6.9 % (10.0-50.0) Monocytes (%) (Auto) 6.6 % (0.0-12.0) Eosinophils (%) (Auto) 0.0 % (0.0-7.0) Basophils (%) (Auto) 0.0 % (0.0-2.0) Neutrophils # (Auto) 11.1 10 ^3/uL (1.6-8.6) Lymphocytes # (Auto) 0.9 10 ^3/uL (0.4-5.4) Monocytes # (Auto) 0.8 10 ^3/uL (0-1.3) Eosinophils # (Auto) 0 10 ^3/uL (0-0.8) Basophils # (Auto) 0 10 ^3/uL (0-0.2) Nucleated Red Blood Cells 0.0 % Sodium Level 138 mmol/L (136-145) Potassium Level 4.2 mmol/L (3.5-5.1) Chloride Level 109 mmol/L (98-107) Carbon Dioxide Level 22 mmol/L (20-31) Anion Gap 7 (5-15) Blood Urea Nitrogen 23 mg/dL (9-23) Creatinine 0.75 mg/dL (0.700-1.30) Glomerular Filtration Rate Calc 101 mL/min (>90) BUN/Creatinine Ratio 30.7 (10.0-20.0) Serum Glucose 159 mg/dL (74-106) Calcium Level 8.9 mg/dL (8.7-10.4) Total Bilirubin 0.3 mg/dL (0.2-1.0) Aspartate Amino Transferase (AST) 24 U/L (13-40) Alanine Aminotransferase (ALT) 18 U/L (7-40) Alkaline Phosphatase 169 U/L (46-116) Total Protein 6.2 g/dL (5.7-8.2) Albumin 3.2 g/dL (3.2-4.8) Prothrombin Time 12.5 sec (9.3-11.8) Prothrombin Time INR 1.19 (0.9-1.15) Activated Partial Thromboplast Time 29.6 SEC (24.5-34.5) Urine Color Light-yellow (Yellow) Urine Clarity Clear (Clear) Urine pH 7.5 (5.0-9.0) Urine Specific [place] 1.021 (1.001-1.035) Urine Protein Negative (Negative) Urine Ketones Negative (Negative) Urine Blood Negative /uL (Negative) Urine Nitrite Negative (Negative) Urine Bilirubin Negative (Negative) Urine Urobilinogen Normal mg/dL (Negative) Urine Leukocyte Esterase Negative /uL (Negative) Urine RBC <1 /hpf (0 - 3) Urine WBC 1 /hpf (0 - 3) Urine Squamous Epithelial Cells None seen /hpf (<5) Urine Bacteria None seen /hpf (None Seen) Urine Mucus Few (None Seen) Urine Glucose Trace mg/dL (Normal) Test 04/07/24 03:15 Lipase 57 U/L (12-53) Other Laboratory Tests 04/13/24 06:14 Brief Hx & Hospital Course: This is a 63 years old male came into emergency department because severe abdominal pain with intractable nausea or vomiting. The patient's ultrasound showed cholelithiasis. The patient continuing to have leukocytosis and abdominal pain. The patient subsequently had HIDA scan which showed non function gallbladder and acute cholecystitis. The patient has cholecystectomy done which showed a gallbladder with gangrenous. The patient was on IV antibiotic Rocephin and Flagyl. The patient also on pain medication. The patient tolerated clear liquid diet advanced to regular diet well today. Patient pass flatus. I am going to discharge the patient home today if cleared by surgeon. Advised the patient to follow up with primary care physician 1-2 weeks. Follow up with surgeon, per schedule for postop follow up. Activity as tolerated. Diet per home diet. Do not lift any object more than 10 lb for two weeks. Physical exam: HEENT: Normocephalic atraumatic pupils equal react to light and accommodation. Extraocular muscles intact, conjunctiva pink, oropharynx moist, no thrush, no exudate. Lymphatic: No lymphadenopathy Cardiovascular exam: S1, S2 was heard. No murmurs, rubs, gallops Lung: Clear on auscultation bilaterally, no wheeze, rale, rhonchi. GI: Abdominal soft, nondistended, nontenderness, positive bowel sounds. Extremity: No crepitus, cyanosis, edema. Pedal pulses present bilateral. Full range of motion. Skin: Normal turgor, no rash. Psych: Alert, oriented x3. Neurology: No focal deficits, cranial nerve II to XII grossly intact. This medical document was created using an electronic medical record system with [employer] direct computerized dictation system. Although this document has been carefully reviewed, there may still be some phonetic and typographical errors. These areas are purely typographical due to imperfections of the software programs, and do not reflect any compromise in the patient's medical care. Condition at Discharge: Stable Final Diagnosis/Problems List Gangrenous cholecystitis with perforation status post cholecystectomy -sepsis -cholelithiasis, with Cholecystitis -primary hypertension Discharge Disposition: Still a Patient Discharge Statement: "Patient was advised to return to the ER or call 911 if any headaches, dizziness, shortness of breath, chest pain, abdominal pain, bleeding, fevers, or worsening of medical condition. Patient was counseled about treatment plan, medications, possible side effects, patientverbalized understanding. All questions were answered to the best of my ability. This discharge took greater then 30 minutes in planning, reviewing documentation, counseling the patient, and discussing with other team members." ASSESSMENT ASSESSMENT Assessment Gangrenous cholecystitis with perforation Date of Service: Apr 14, 2024 Billing Provider: FANNIE FREY MD Common Visit Codes: [id number] INP/OBS CARE(HIGH) FANNIE FREY MD Apr 14, 2024 08:16
--- NOTE | 2024-04-14 08:30 | DVHPN2 ---
Progress Note - Dictate Date Seen: Apr 14, 2024 Medical Necessity Reason Pt with a Central, PICC or Fol: No Subjective E: no major events o/n. no complaints. derrick diet vital signs Vital Sign Date Time Temp Pulse Resp B/P (MAP) Pulse Ox O2 Delivery O2 Flow Rate FiO2 04/14/24 05:00 97.9 68 18 132/73 (92) 95 97.9 04/13/24 20:00 Room Air* 0 21 Total Intake and Output 04/13/24 04/13/24 04/14/24 15:00 23:00 07:00 Intake Total 450 ml 2080 ml 480 ml Output Total 1210 ml 350 ml Balance 450 ml 870 ml 130 ml medications Current Medications Medications Dose Ordered Sig/Marie Route Start Time Stop Time Status Last Admin Dose Admin Metronidazole 100 ml @ 100 mls/hr Q8HR IV 04/07/24 09:15 04/14/24 04:43 100 MLS/HR Diagnostic Test (Pha) 1 strip IQ4HR 04/07/24 12:00 04/14/24 03:38 1 STRIP Insulin Human Regular IQ4HR SC 04/07/24 12:00 04/14/24 03:41 2 UNITS Dextrose 50 ml UD PRN IV 04/07/24 09:15 Sodium Chloride 1,000 ml @ 60 mls/hr [id number] IV 04/07/24 09:15 Cancel Al Hydrox/Mg Hydrox/Simethicone 30 ml Q6HP PRN PO 04/07/24 09:15 Docusate Sodium 100 mg BIDPRN PRN PO 04/07/24 09:15 Acetaminophen 650 mg Q6HP PRN PO 04/07/24 09:15 04/13/24 16:51 650 MG Temazepam 15 mg QHSP PRN PO 04/07/24 09:15 Acetaminophen/ Hydrocodone Bitart 1 tab Q4HP PRN PO 04/07/24 09:15 04/11/24 16:56 1 TAB Ondansetron HCl 4 mg Q4HP PRN IV 04/07/24 09:15 04/12/24 01:23 4 MG Morphine Sulfate 2 mg Q4HPRN PRN IV 04/07/24 09:15 04/12/24 13:16 2 MG Hydralazine HCl 10 mg Q6HR PRN IV 04/07/24 09:45 Potassium Chloride 20 meq/ Dextrose/Lactated Ringer's 1,010 ml @ 100 mls/hr Q10H6M IV 04/09/24 12:00 04/14/24 03:51 100 MLS/HR Ceftriaxone Sodium 50 ml @ 100 mls/hr DAILY@09 IV 04/10/24 10:15 04/13/24 08:32 100 MLS/HR Pantoprazole Sodium 40 mg DAILY IV 04/11/24 10:00 04/13/24 09:06 40 MG objective GEN: NAD ABD: surgical dressings clean and dry. SPENCER 30 mL serosang. laboratory and microbiology Laboratory Tests 04/13/24 06:14 Test 04/13/24 06:14 Range/Units Serum Glucose 159 H 74-106 mg/dL Assessment/Plan A: 1. s/p lap cholecystectomy POD #2 doing well. P: 1. dc plan per hospitalist. 2. if discharged, f/u next week to clinic. call [phone] for appt. 3. ok to shower and get incisions/SPENCER wet 4. teach SPENCER care. measure output and write down the amt Plan discussed with: Patient KHLOE BRAMBILA MD Apr 14, 2024 08:30
[2024-04-14 09:16] LABS: Basophils # (auto) 0 10 ^3/uL (0-0.2); Basophils % (auto) 0.4 % (0.0-2.0); Eosinophils # (auto) 0.1 10 ^3/uL (0-0.8); Eosinophils % (auto) 0.5 % (0.0-7.0); Hematocrit 40.5 % (41.0-53.0); Hemoglobin 13.2 g/dL (13.5-17.5); Lymphocytes # (auto) 2.8 10 ^3/uL (0.4-5.4); Lymphocytes % (auto) 23.7 % (10.0-50.0); Mean Corpuscular Hemoglobin 30.5 pg (28.0-32.0); Mean Corpuscular Hgb Conc. 32.7 g/dL (32.0-36.0); Mean Corpuscular Volume 93.3 fL (80.0-100.0); Monocytes # (auto) 1.3 10 ^3/uL (0-1.3); Monocytes % (auto) 10.7 % (0.0-12.0); Neutrophils # (auto) 7.7 10 ^3/uL (1.6-8.6); Neutrophils % (auto) 64.7 % (37.0-80.0); Nucleated Red Blood Cells % 0.2 %; Platelet Count (auto) 158 10^3/uL (140-450); Red Blood Cells 4.33 10^6/uL (4.5-5.90); White Blood Cell 11.9 10^3/uL (4.4-10.8)
[2024-04-14 09:27] LABS: Anion Gap 7 (5-15); Aspartate Aminotransferase 37 U/L (13-40); Bilirubin, Total 0.4 mg/dL (0.2-1.0); Carbon Dioxide 23 mmol/L (20-31); Chloride 106 mmol/L (98-107); Sodium 136 mmol/L (136-145); Total Protein 6.1 g/dL (5.7-8.2)
[2024-04-14 09:35] LABS: BUN/Creatinine Ratio 17.5 (10.0-20.0)
[2024-04-14 09:36] LABS: Alanine Aminotransferase 19 U/L (7-40); Albumin 3.2 g/dL (3.2-4.8); Alkaline Phosphatase 156 U/L (46-116); Blood Urea Nitrogen 11 mg/dL (9-23); Calcium 8.6 mg/dL (8.7-10.4); Glucose 125 mg/dL (74-106); Potassium 4.2 mmol/L (3.5-5.1)
[2024-04-15 01:00] VITALS: BP 124/83; PULSE 70; RESP 18; TEMP 97.6; O2SAT 94
[2024-04-15 05:00] VITALS: BP 145/88; PULSE 87; RESP 18; TEMP 98; O2SAT 94
[2024-04-15 09:30] VITALS: BP 126/81; PULSE 70; RESP 19; TEMP 98.6; O2SAT 95
[2024-04-15 13:03] VITALS: BP 141/89; PULSE 73; RESP 18; TEMP 98.7; O2SAT 97
[2024-04-15] MEDS ORDERED: ALUMSUS16 PO (13:18)
[2024-04-15] MEDS ORDERED: AUG875T PO (13:18)
[2024-04-15] MEDS ORDERED: ACET-1079 PO (13:18)
[2024-04-15 14:31] VITALS: BP 141/89; PULSE 73; RESP 17; TEMP 98.7; O2SAT 97
--- NOTE | 2024-04-15 14:50 | DVHDS2 ---
Discharge Summary Date of Admission Apr 07, 2024 at 09:09 Date of Discharge: Apr 15, 2024 Labs/Diagnostic Data: Laboratory Results Test 04/15/24 11:18 04/14/24 08:58 04/10/24 10:55 04/07/24 19:19 POC Glucose 130 mg/dl (70-106) White Blood Count 11.9 10^3/uL (4.4-10.8) Red Blood Count 4.33 10^6/uL (4.5-5.90) Hemoglobin 13.2 g/dL (13.5-17.5) Hematocrit 40.5 % (41.0-53.0) Mean Corpuscular Volume 93.3 fL (80.0-100.0) Mean Corpuscular Hemoglobin 30.5 pg (28.0-32.0) Mean Corpuscular Hemoglobin Concent 32.7 g/dL (32.0-36.0) Red Cell Distribution Width 15.0 % (11.8-14.3) Platelet Count 158 10^3/uL (140-450) Mean Platelet Volume 10.0 fL (6.9-10.8) Neutrophils (%) (Auto) 64.7 % (37.0-80.0) Lymphocytes (%) (Auto) 23.7 % (10.0-50.0) Monocytes (%) (Auto) 10.7 % (0.0-12.0) Eosinophils (%) (Auto) 0.5 % (0.0-7.0) Basophils (%) (Auto) 0.4 % (0.0-2.0) Neutrophils # (Auto) 7.7 10 ^3/uL (1.6-8.6) Lymphocytes # (Auto) 2.8 10 ^3/uL (0.4-5.4) Monocytes # (Auto) 1.3 10 ^3/uL (0-1.3) Eosinophils # (Auto) 0.1 10 ^3/uL (0-0.8) Basophils # (Auto) 0 10 ^3/uL (0-0.2) Nucleated Red Blood Cells 0.2 % Sodium Level 136 mmol/L (136-145) Potassium Level 4.2 mmol/L (3.5-5.1) Chloride Level 106 mmol/L (98-107) Carbon Dioxide Level 23 mmol/L (20-31) Anion Gap 7 (5-15) Blood Urea Nitrogen 11 mg/dL (9-23) Creatinine 0.63 mg/dL (0.700-1.30) Glomerular Filtration Rate Calc 107 mL/min (>90) BUN/Creatinine Ratio 17.5 (10.0-20.0) Serum Glucose 125 mg/dL (74-106) Calcium Level 8.6 mg/dL (8.7-10.4) Total Bilirubin 0.4 mg/dL (0.2-1.0) Aspartate Amino Transferase (AST) 37 U/L (13-40) Alanine Aminotransferase (ALT) 19 U/L (7-40) Alkaline Phosphatase 156 U/L (46-116) Total Protein 6.1 g/dL (5.7-8.2) Albumin 3.2 g/dL (3.2-4.8) Prothrombin Time 12.5 sec (9.3-11.8) Prothrombin Time INR 1.19 (0.9-1.15) Activated Partial Thromboplast Time 29.6 SEC (24.5-34.5) Urine Color Light-yellow (Yellow) Urine Clarity Clear (Clear) Urine pH 7.5 (5.0-9.0) Urine Specific [place] 1.021 (1.001-1.035) Urine Protein Negative (Negative) Urine Ketones Negative (Negative) Urine Blood Negative /uL (Negative) Urine Nitrite Negative (Negative) Urine Bilirubin Negative (Negative) Urine Urobilinogen Normal mg/dL (Negative) Urine Leukocyte Esterase Negative /uL (Negative) Urine RBC <1 /hpf (0 - 3) Urine WBC 1 /hpf (0 - 3) Urine Squamous Epithelial Cells None seen /hpf (<5) Urine Bacteria None seen /hpf (None Seen) Urine Mucus Few (None Seen) Urine Glucose Trace mg/dL (Normal) Test 04/07/24 03:15 Lipase 57 U/L (12-53) Other Laboratory Tests 04/14/24 08:58 Brief Hx & Hospital Course: 62-year-old male admitted for sepsis secondary to cholecystitis, status post lap [place], cleared by surgery. Patient will be discharged with Augmentin to complete 5 days, and to follow up with surgery as outpatient in 1 week. Patient will be discharged with SPENCER drain Condition at Discharge: Good Final Diagnosis/Problems List Gangrenous cholecystitis with perforation Discharge Disposition: Home Discharge Instruct/Medications Diet: Consistent carbohydrate, Cardiac 2g Na,low cholest Activity: No Restrictions, As Tolerated Follow Up/Referral: 1 week in clinic for surgery please make appt PCP Medications: tylenol augmentin 36 Discharge Statement: "Patient was advised to return to the ER or call 911 if any headaches, dizziness, shortness of breath, chest pain, abdominal pain, bleeding, fevers, or worsening of medical condition. Patient was counseled about treatment plan, medications, possible side effects, patientverbalized understanding. All questions were answered to the best of my ability. This discharge took greater then 30 minutes in planning, reviewing documentation, counseling the patient, and discussing with other team members." ASSESSMENT ASSESSMENT Assessment Gangrenous cholecystitis with perforation Status post lap [place] Hypertension Sepsis, resolved Date of Service: Apr 15, 2024 Billing Provider: MINGO NICKERSON MD Common Visit Codes: 57974-YKY/OBS DISCH DAY >30min MINGO NICKERSON MD Apr 15, 2024 14:50
== END 2024-04-15 15:26 | disposition home or self-care (01) | DRG 710 ==
LOC: ER 02:36 → OVERFLOW 09:09 → CENTRAL 04-08 15:46
PROVIDERS: ADMIT Hospitalist; ATTEND Student in an Organized Health Care Education/Training Program
PROC: 0FT44ZZ Resection of Gallbladder, Percutaneous Endoscopic Approach (ICD-10-PCS; principal; 2024-04-12 10:40)
DX: A41.9 Sepsis, unspecified organism (principal); K82.A1 Gangrene of gallbladder in cholecystitis; K80.62 Calculus of gallbladder and bile duct with acute cholecystitis without obstruction; K82.A2 Perforation of gallbladder in cholecystitis; R71.0 Precipitous drop in hematocrit; I10 Essential (primary) hypertension; K66.0 Peritoneal adhesions (postprocedural) (postinfection); Z94.7 Corneal transplant status; Z79.899 Other long term (current) drug therapy
CPT/HCPCS: 36415; 71045; 74177; 76705; 78226; 80048; 80053; 81001; 82962; 83690; 85025; 85610; 85730; 86850; 86900; 86901; 93005; 99291; G0378; J1100; J1815; J1885; J2250; J2405; J2470; J2704; J3490